=== PATIENT | female | born 1950 | race Caucasian/White ===

== ENCOUNTER 2017-01-18 10:59 | Inpatient (IN) | payer MEDICARE, OTHER ==
[~2017-01-18] VITALS: Ht 165.1 cm; Wt 93.0 kg
[~2017-01-18 10:59] MED LIST: ACAI BERRY500 MG PO; ALDACTAZIDE 251 EACH PO; BENICAR20 MG PO; CALCIUM 600 +1 EAC4 PO; CLONIDINE HCL0.1 MG PO; DILTIAZEM HCL120 MG PO; FISH OIL500 MG; FLEXERIL10 MG PO; GREEN TEA250 MG PO; LAMOTRIGINE100 MG PO; METHIMAZOLE10 MG PO; METOPROLOL TART50 MG PO; NORCO 5-325 TA1 EACH PO; SERTRALINE HCL100 MG PO; SIMVASTATIN40 MG PO; SPIRONOLACTONE25 MG PO; TIZANIDINE HCL4 MG PO; TRAZODONE HCL100 MG PO; VITAMIN D3 EPIDURAL; VITAMIN D32000 UNIT PO
--- NOTE | 2017-02-22 11:32 | NUR ---
PREADMIT PT CARE NOTE THIS IS A 66 YEAR OLD FEMALE THAT IS SCHEDULED FOR A RIGHT TOTAL HIP ON 03/04/[address] TITO SIMMONS. PT STATES SHE LIVES IN A SPLIT LEVEL HOME WITH STAIRS, BUT IF SHE GOES IN THE BACK WAY IT IS ALL ONE LEVEL FOR HER. STATES SHE HAS A WALK IN SHOWER WITH A SHOWER SEAT ALSO A HANDHELD SHOWER HEAD. SHE SAYS SHE ALREADY HAS A WALKER THAT IS FOUR WHEELED. STATES SHE IS PLANNING TO DO OP PT WITH [facility] OP PT. DENIES FURTHER QUESTIONS AT THIS TIME. WILL FOLLOW HER WHEN SHE IS IN THE HOSPITAL.
--- NOTE | 2017-03-04 08:53 | NUR ---
03/04/17 0[facility]: O2 REMOVED.
--- NOTE | 2017-03-04 10:45 | NUR ---
PT DOZING OFF BETWEEN CARES. VSS. RIGHT HIP DRESSING C/D/I. NO DRAINAGE ON MEPILEX VISIBLE. CMS INTACT. CRYOCUFF IN PLACE. FAMILY AT BEDSIDE. DECREASED O2 TO 1L. FAMILY TO BRING IN CPAP MACHINE FROM HOME.
--- NOTE | 2017-03-04 11:45 | NUR ---
POST OP 1130 VITALS DONE. PATIENT USING I/S WELL, COUGHING AFTER USE. O2 SATS ARE 96% ON 1L, ROOM AIR TRIAL STARTED. PATIENT DENIES PAIN AT THIS TIME.
--- NOTE | 2017-03-04 13:00 | NUR ---
NOTIFIED HOSPITALIST AND ANESTHESIOLOGIST OF LOW BPs. NO CONCERN UNLESS SYMPTOMATIC. PT REPORTING NEED TO URINATE. WILL GET PATIENT UP TO COMMODE WITH 2PA.
--- NOTE | 2017-03-04 13:12 | NUR ---
PT RESTING IN BED, AND OTHER FAMILY PRESENT. PT STATED THAT SHE IS PAIN-FREE AT THE MOMENT. EXTENDED A BLESSING, WILL CONTINUE TO FOLLOW
--- NOTE | 2017-03-04 13:34 | NUR ---
PATIENT SITTING UP IN BED READING. FRESH ICE WATER GIVEN. CALL BUTTON IN REACH. IN ROOM. NO OTHER NEEDS AT THIS TIME.
[2017-03-04] MEDS ORDERED: METHIMAZOLE5 MG PO (15:06)
[2017-03-04] MEDS ORDERED: METOPROLOL TART25 MG PO (15:07)
[2017-03-04] MEDS ORDERED: SIMVASTATIN20 MG PO (15:08)
[2017-03-04] MEDS ORDERED: LOSARTAN POTAS100 MG PO (15:08)
[2017-03-04] MEDS ORDERED: DILTIAZEM ER240 MG PO (15:08)
[2017-03-04] MEDS ORDERED: FERROUS SULFAT325 MG PO (15:10)
[2017-03-04] MEDS ORDERED: VITAMIN C500 M4 PO (15:10)
[2017-03-04] MEDS ORDERED: VITAMIN D1000 UNIT PO (15:10)
--- NOTE | 2017-03-04 15:34 | NUR ---
pt had two episodes of emesis. no nausea precipitating event. 800ml total. zofran given. working with physical therapy now.
--- NOTE | 2017-03-04 15:48 | NUR ---
PATIENT WORKING WITH PT.
--- NOTE | 2017-03-04 19:17 | NUR ---
RECEIVED REPORT FROM RN. PATIENT DENIES NEEDS AT THIS TIME.
--- NOTE | 2017-03-04 19:31 | NUR ---
ANSWERED CALL LIGHT PATIENT WASN'T FEELING WELL NURSE NOTIFIED.
--- NOTE | 2017-03-04 20:06 | NUR ---
EVENING MEDICATIONS GIVEN, SHIFT ASSESSMENT DONE. PATIENT REPORTS /10 PAIN IN RIGHT HIP. SCHEDULED PAIN MEDICATION GIVEN. PATIENT AMBULATED TO BATHROOM WITH SBA/FWW, WHICH SHE TOLERATED WELL. TEDs/SCDs/HEEL PROTECTORS/FOAM WEDGE/CRY CUFF IN PLACE. CALL LIGHT WITHIN REACH.
--- NOTE | 2017-03-04 23:02 | NUR ---
ASSISTED THE PATIENT TO THE BATHROOM AND BACK TO BED USING WALKER. PATIENT TOLERATED WELL. CRYO CUFF, CONT. PULSE OX, ABDUCTION DEVICE, HEEL PROTECTOR, SCDS BACK ON. CALL LIGHT WITHIN REACH.
--- NOTE | 2017-03-04 23:03 | NUR ---
PATIENT REPORTS 6/10 PAIN IN RIGHT HIP. PRN PAIN MEDICATION GIVEN PER EMAR. PATIENT DENIES OTHER NEEDS AT THIS TIME. ALL ORDERS IN PLACE, CALL LIGHT WITHIN REACH.
--- NOTE | 2017-03-05 01:09 | NUR ---
PATIENT AMBULATED TO BATHROOM WITH SBA/FWW/NON-SLIP SOCKS, WHICH SHE TOLERATED WELL. REPORTS 2/10 PAIN IN RIGHT HIP. SCHEDULED PAIN MEDICATION GIVEN PER EMAR. SHIFT ASSESSMENT DONE. SHE DENIES FURTHER NEEDS AT THIS TIME. CALL LIGHT WITHIN REACH, ALL ORDERS IN PLACE.
--- NOTE | 2017-03-05 01:28 | NUR ---
ASSISTED PATIENT TO THE BATHROOM THEN BACK TO BED. PATIENT TOLERATED WELL. CALL LIGTH WITHIN REACH.
--- NOTE | 2017-03-05 03:48 | NUR ---
AFTER AMBULATING TO BATHROOM, PATIENT REPORTS 6/10 PAIN IN RIGHT HIP. PRN PAIN MEDICATION GIVEN PER EMAR. DENIES OTHER NEEDS AT THIS TIME. CALL LIGHT WITHIN REACH, ALL ORDERS IN PLACE.
--- NOTE | 2017-03-05 05:48 | NUR ---
PATIENT'S NIGHT WAS UNEVENTFUL. SHE HAS BEEN RESTING COMFORTABLY IN BED THROUGHOUT SHIFT. VSS, PAIN HAS BEEN WELL CONTROLLED WITH SCHEDULED AND PRN PAIN MEDICATION, AND HAS HAD NO COMPLAINTS OF NAUSEA. DRESSING REMAINS C/D/I, CMS INTACT. DRESSING REMAINS C/D/I, PATIENT IS AMBULATING TO BATHROOM WITH 1PA/FWW AND IS TOLERATING WELL. NO ACUTE CHANGES FROM BEGINNING OF SHIFT ASSESSMENT.
--- NOTE | 2017-03-05 06:28 | NUR ---
PATIENT REPORTS 5/10 RIGHT HIP PAIN AFTER AMBULATING TO BATHROOM. PRN PAIN MEDICATION GIVEN PER EMAR. PATIENT DENIES FURTHER NEEDS AT THIS TIME. RESTING COMFORTABLY IN BED, BREATHING IS EVEN AND UNLABORED, O2 SAT IS 97% ON RA, PULSE IS 75. ALL ORDERS IN PLACE, CALL LIGHT WITHIN REACH.
--- NOTE | 2017-03-05 08:19 | OR ---
[facility] [address] [place], [place] [address] Signed DATE OF PROCEDURE: 03/04/17 PREOPERATIVE DIAGNOSIS: Degenerative joint disease, right hip. POSTOPERATIVE DIAGNOSIS: Degenerative joint disease, right hip. PROCEDURE PERFORMED: Right total hip arthroplasty. AMBULETTE DRIVER: Linnette Saleh PA-C. Linnette was present for the entire surgery and was critical for positioning, retraction, and holding the hip in proper alignment. ANESTHESIA: Spinal with sedation. BLOOD LOSS: 150 mL. IMPLANTS: [place] [employer]Fit advanced size 7 stem, 54 mm PSL cup, -2.5 head. BRIEF HISTORY Rocio is a 58-year-old female with progressive worsening of her osteoarthritis. It was nonresponsive to nonoperative treatment. Risks, benefits, and alternatives of operative intervention were discussed with her and she elected to proceed. DESCRIPTION OF PROCEDURE Once consent was obtained, she was taken to the operating room, and after adequate anesthesia, she was placed in a left lateral decubitus position. All downside pressure points were well padded and axillary roll was placed. The leg was then prepped and draped in the standard sterile fashion. The hip was approached through an anterolateral approach. A 5-inch incision was carried through skin and subcutaneous tissue. The IT band was split longitudinally. The vastus lateralis was then split from the tip of the trochanter distally and elevated in a subperiosteal manner. The gluteus medius was split bluntly. Gluteus minimus and capsule were split sharply. The capsule and minimus were then elevated off the femoral neck. The hip was dislocated and the femoral neck cut was made 1 fingerbreadth above the lesser trochanter and the head was removed. Periacetabular soft tissue was removed and the acetabulum was reamed up to a 54, and a 54 cup was placed in 15 degrees of anteversion and 45 degrees of abduction. Excellent fixation in the bone was obtained. The cup liner was then impacted in position. It was found to be quite stable. Attention was turned to proximal femur. The proximal femur was opened using the box osteotome, followed by the Silvio cross. I t was then sequentially reamed up to an 8 and broached up to a 7, which was quite well fitting in type. Standard offset neck and +0 head were placed. The hip was a little bit tight to reduce and there Electronically Signed By: ERNA NGUYEN MD 03/05/17 0819 PATIENT NAME: ROCIO MARRERO OPERATIVE REPORT DATE OF : 46 PHYSICIAN: ERNA NGUYEN MD REPORT #: [id number] REPORT IS CONFIDENTIAL AND NOT TO BE RELEASED WITHOUT AUTHORIZATION [facility] [address] [place], [place] [address] Signed was hamstring tightness. The leg lengths were approximately the same. The hip was then dislocated. The trials were removed. The final stem was impacted until it was well seated. A -2.5 head was impacted again until it was seated firmly. The hip was then reduced. Leg lengths were found to be equal and good range of motion with no hamstring tightness. The wound was copiously irrigated with antibiotic solution throughout the procedure. A total of 3 L of antibiotic irrigation was used. The capsule was closed using #1 Vicryl. The vastus and IT band layers were closed independently using #1 Stratafix. The subcutaneous and fat layers were closed independently using 0 Stratafix and the skin with baron. Wound was dressed with a Mepilex Ag dressing, OpSite, and she was placed in a hip abduction pillow, taken to recovery in satisfactory condition. All sponge, needle and instrument counts were correct. Erna Nguyen MD BA/Hiteshl /[id number] cc: Jaylon Bass MD Electronically Signed By: ERNA NGUYEN MD 03/05/17 0819 PATIENT NAME: ROCIO MARRERO OPERATIVE REPORT DATE OF : 46 PHYSICIAN: ERNA NGUYEN MD REPORT #: [id number] REPORT IS CONFIDENTIAL AND NOT TO BE RELEASED WITHOUT AUTHORIZATION
--- NOTE | 2017-03-05 08:30 | NUR ---
PATIENT UP TO BATHROOM, STANDBY ASSSIST THEN TO CHAIR. PATIENT TOLERATES WELL, USES WALKER WITH GOOD TECHNIQUE. PATIENT IN CHAIR WORKING WITH PT.
--- NOTE | 2017-03-05 10:00 | NUR ---
PATIENT SLEEPING IN CHAIR. IN ROOM, CALL LIGHT IN REACH.
--- NOTE | 2017-03-05 12:42 | NUR ---
PATIENT SITTING UP IN BED EATING LUNCH. PATIENT RATES PAIN 4/10 TO RIGHT HIP. THIS RN ASSISTS PATIENT UP TO BATHROOM. PATIENT TOLERATES WELL,THEN BACK TO BED.
--- NOTE | 2017-03-05 14:05 | NUR ---
PT LAYING IN BED. ASKED HOW SHE WAS TODAY-SHE SAID SHE IS IN SOME PAIN. ALSO SAID SHE DIDN'T GET MUCH SLEEP LAST NIGHT, TOO MANY INTERRUPTIONS IN HER TERMS "CHECKING" ON HER. WILL PASS ALONG, DECIDED SHE NEEDED TO REST. WILL FOLLOW NEEDED
--- NOTE | 2017-03-05 14:09 | NUR ---
PATIENT UP TO BATHROOM, C/O PAIN 11/26 TO RIGHT HIP. PATIENT TO CHAIR, REQUESTS PRN MED. DR SIMMONS CALLED, LEFT MESSAGE AT OFFICE. PATIENT UP IN CHAIR WITH WARM BLANKET.
--- NOTE | 2017-03-05 14:30 | NUR ---
CALLED A SECOND TIME, NEW ORDER RECIEVED. CALLED PHARMACY TO GET MED STAT.
--- NOTE | 2017-03-05 15:25 | NUR ---
Patient now rates pain 6/10 to right hip. Patient has been up to bathroom frequently and still feels quite uncomfortable. MD is aware, pain medications have been changed.
[2017-03-05] MEDS ORDERED: SIMVASTATIN40 MG PO (16:11)
[2017-03-05] MEDS ORDERED: SPIRONOLACTONE1 EACH PO (16:12)
[2017-03-05] MEDS ORDERED: VENTOLIN HFA18 GM (16:26)
[2017-03-05] MEDS ORDERED: LAMICTAL100 MG PO (16:26)
--- NOTE | 2017-03-05 16:28 | NUR ---
Medications reconciled using pharmacy records and patient interview & list
--- NOTE | 2017-03-05 18:43 | NUR ---
Patient has had a difficult day today with poor pain control. Dr Nguyen called three different times for pain control issues. Patient is resting comfortably at this time, pain medication dosages and frequencys have been changed to improve pain control. Patient up ambulating with standby assist.
--- NOTE | 2017-03-05 19:11 | NUR ---
Got a bed bath today. Also put a hip wedge to prevent patient crossing her legs. Refilled cryo at 0754 and 1550.
--- NOTE | 2017-03-05 19:15 | NUR ---
SHIFT REPORT RECIEVED. PATIENT RESTING IN BED WATCHING TV. FAMILY IN ROOM. CALL LIGHT IN REACH.
--- NOTE | 2017-03-05 20:37 | NUR ---
EVENING MEDS GIVEN PER ORDER. PATIENT ASSESSMENT COMPLETED. PATIENT REPORTED PAIN AT 5/10, PRN PAIN MEDS GIVEN. CRYO REFILLED WITH ICE. IVF INFUSING, SITE WNL. LUNGS CLEAR. PATIENT REPORTS EATING ABOUT HALF OF HER DINNER WITHOUT NAUSEA. PATIENT UP TO BSC W/1PA AND FWW. OPSITE AND MEPILEX ON RIGHT HIP ARE C/D/I. PATIENT ASSISTED BACK TO BED. SCDS, HEEL PROTECTORS, CARRIE HOSE AND ABDUCTOR IN PLACE. IS AT BEDSIDE, PATIENT DEMONSTRATED APPROPRIATE USE. CRYO IN PLACE. CALL LIGHT IN REACH.
--- NOTE | 2017-03-05 22:11 | NUR ---
patient reports pain at 2.5/10. scheduled pain meds given. patient up to BSC. 1pa w/fww. patient assisted back to bed. cpap in place. cryo cuff, scds, heel protectors, and abductor in place. call light in reach.
--- NOTE | 2017-03-05 23:49 | NUR ---
PATIENT REQUESTED ASSISTANCE TO BSC. 1PA W/FWW. TOLERATED WELL. ASSISTED BACK TO BED. REPORTED PAIN AT 2.5/10. CPAP IN PLACE. CRYO, CARRIE HOSE, HEEL PROTECTORS, SCDS, AND ABDUCTOR IN PLACE. CALL LIGHT IN REACH.
--- NOTE | 2017-03-06 01:15 | NUR ---
PATIENT ASSISTED UP TO BSC 1PA W/FWW. PATIENT REPORTED PAIN AT 5/10. PRN PAIN MEDS GIVEN. PATIENT BACK TO BED. CRYO IN PLACE. CARRIE HOSE, SCDS, HEEL PROTECTORS AND ABDUCTOR IN PLACE. CALL LIGHT IN REACH. AT BEDSIDE.
--- NOTE | 2017-03-06 02:20 | NUR ---
PATIENT UP TO BSC, 1PA W/FWW. TOLERATED WELL. REPORTED PAIN AT 5/10, SCHEDULED PAIN MEDS GIVEN. CRYO REFILLED WITH ICE AND IN PLACE. PATIENT BACK IN BED. TEDHOSE, SCDS, HEEL PROTECTORS, AND ABDUCTOR IN PLACE. ICE WATER PROVIDED. PATIENT RESTING IN BED, CPAP IN PLACE. CALL LIGHT IN REACH.
--- NOTE | 2017-03-06 04:15 | NUR ---
PATIENT UP TO BSC 1PA W/FWW. TOLERATED WELL. ASSISTED BACK TO BED. RATED PAIN AT 4/10, PRN PAIN MEDS GIVEN. CRYO IN PLACE WITH SUFFICIENT ICE. HEEL PROTECTORS, CARRIE HOSE, SCDS AND ABDUCTOR IN PLACE. CALL LIGHT IN REACH. DENIES FURTHER NEEDS.
--- NOTE | 2017-03-06 05:12 | NUR ---
PATIENT WAS UP FREQUENTLY TO USE THE BATHROOM. PAIN WELL CONTROLLED WITH SCHEDULED PAIN MEDS AND PRN PAIN MEDS X3. CARRIE HOSE, HEEL PROTECTORS, SCDS, AND ABDUCTOR IN USE. CRYO IN USE ON RIGHT HIP. DRESSING IS C/D/I. CPAP AT NIGHT. IN ROOM. NO NAUSEA REPORTED, TOLERATING REGULAR DIET.
--- NOTE | 2017-03-06 06:25 | NUR ---
PATIENT RESTING IN BED. SCHEDULED PAIN MEDS GIVEN. PAIN RATED 4/10. CRYO IN PLACE. NO FURTHER NEEDS. CALL LIGHT IN REACH.
--- NOTE | 2017-03-06 07:30 | NUR ---
REPORT RECEIVED FROM MATILDA, PATIENT STANDBY ASSIST UP TO THE COMMODE AND VOIDED 250MLS OF CLEAR YELLOW URINE. PATIENT TOLERATED TX WELL AND WAS STEADY ON HER FEET. PATIENT TO HER CHAIR AND IV SALINE LOCKED. DRESSING TO THE RIGHT HIP CDI WITH MEPILEX AND OPSITE. CMS INTACT TO THE RIGHT LEG.
--- NOTE | 2017-03-06 07:58 | NUR ---
PATIENT SITTING UP IN THE CHAIR EATING HER BREAKFAST. PAIN IN THE RIGHT HIP IS 4/10, PATIENT REQUESTING PAIN MEDICATION AT THIS TIME. PATIENT GIVEN 4MG OF ORAL DILAUDID AT THIS TIME.
--- NOTE | 2017-03-06 08:30 | NUR ---
PATIENT REQUESTING ANOTHER PAIN PILL PAIN IS NOW 5/10 AFTER GETTING UP IN THE ROOM AND BED BATH DONE WITH RADIOGRAPHER TECHNOLOGIST. 2MG OF DILAUDID GIVEN PO.
--- NOTE | 2017-03-06 09:15 | NUR ---
PATIENT UP TO COMMODE AT THIS TIME. PATIENT REQUESTING TO LAY DOWN AFTER USING THE COMMODE. CRYO CUFF WAS REFILLED WITH FRESH ICE. BEDBATH GIVEN BY THIS AXLE AND FRAME MECHANIC AND AM CARE DONE BY PATIENT. PATIENT REQUESTING MORE PAIN MEDICATION-DEEJAY LASSITER WAS NOTIFIED.
--- NOTE | 2017-03-06 10:21 | NUR ---
PATIENT RESTING IN BED AT THIS TIME. VITALS TAKEN. CRYO CUFF IS IN PLACE AND CALL LIGHT IS WITHIN REACH. NO OTHER COMPLAINTS OR REQUESTS AT THIS TIME.
--- NOTE | 2017-03-06 10:21 | NUR ---
WENT TO PATIENTS ROOM TO GIVE THE PATIENT HER SCHEDULED OXYCODONE, HER HAD JUST TAKEN HER TO THE BATHROOM TO VOID WITHOUT CALLING STAFF TO HELP WITH AMBULATION, ASKED PATIENT AND THE TO PLEASE NOT DO THAT AGAIN AND TO MAKE SURE STAFF IS PRESENT WHEN THE PATIENT AMBULATES. PAIN AT THIS TIME IS AT A 5/10. SCD'S, HEEL PROTECTORS AND CRYO CUFF PLACED ON THE PATIENT AT THIS TIME. PATIENT IS ON THE PHONE WITH A FRIEND. APPEARS TO BE IN NO PAIN OR DISCOMFORT.
--- NOTE | 2017-03-06 11:09 | NUR ---
PATIENT ASSISTED UP TO THE BATHROOM TO VOID, PATIENT VOIDED 300MLS OF YELLOW CLEAR URINE, PATIENT WAS STEADY ON HER FEET WITH HER FWW JUST NEEDED ASSISTANCE WITH HER RIGHT LEG INTO THE BED. CRYO CUFF, SCD'S AND HEEL PROTECTORS BACK ON HER AT THIS TIME. PATIENT'S PAIN CURRENTLY 3/10. PATIENT READY TO WORK WITH PHYSICAL THERAPY.
--- NOTE | 2017-03-06 11:53 | NUR ---
PATIENT MOVED UP IN BED AND LUNCH SET UP FOR HER AT THIS TIME.
--- NOTE | 2017-03-06 13:10 | NUR ---
PATIENT RESTING IN BED AND VISITING WITH HER FAMILY. NO REQUESTS AT TIME.
--- NOTE | 2017-03-06 13:41 | NUR ---
PT SLEEPING VERY SOUNDLY. DID NOT WANT TO BOTHER HER. FAMILY WAS IN THE RM, WAVED TO THEM THEY WAVED BACK. WILL CONTINUE TO FOLLOW
--- NOTE | 2017-03-06 14:13 | NUR ---
PATIENT ASSISTED UP TO THE BATHROOM TO VOID, PATIENT VOIDED YELLOW URINE 300MLS. PATIENT IS A STANDBY ASSIST AND STATES PAIN IS AT A 5/10 WITH AMBULATION. PATIENT GIVEN SCHEDULED OXYCODONE PO.
--- NOTE | 2017-03-06 15:13 | NUR ---
PATIENTS VITALS AND I&O'S DONE AND CHARTED AT THIS TIME. PATIENT IS RESTING IN BED WITH HER PERSONAL CPAP ON AND HER EYES CLOSED. PATIENT HAS VISITORS IN ROOM AT HER BEDSIDE. PATIENT'S CRYO CUFF REFILLED WITH FRESH ICE AT THIS TIME ALSO.
--- NOTE | 2017-03-06 15:52 | NUR ---
patient standby assist up to the bathroom to void, assisted her with her right leg, patient's pain is tolerable at this time and she denies the need for more pain medication. family present in the room at this time.
--- NOTE | 2017-03-06 16:40 | NUR ---
patient has been up ambulating with physical therapy, patient requesting pain medication and rates pain in the right hip 4.5. patient given 6mg of po dilaudid at this time.
--- NOTE | 2017-03-06 18:29 | NUR ---
PATIENT HAS WORKED WITH PHYSICAL THERAPY TWICE TODAY AND IS READY TO D/C HOME TOMMORROW. SHE HAS A MEPILEX DRESSING TO THE RIGHT HIP WITH AN OPSITE OVER THE MEPILEX THAT HAS REMAINED CDI. PATIENT HAS BEEN A STANDBY ASSIST UP TO THE BATHROOM ONLY NEEDING ASSISTANCE WITH MOVING THE RIGHT LEG IN BED. SHE HAS BEEN ABLE TO USE THE BATHROOM WITH MINIMAL ASSISTANCE AND PAIN HAS RANGED TODAY FROM 2 TO 5 WHICH IS TOLERABLE FOR HER. SHE REMAINS ON RA.
--- NOTE | 2017-03-06 18:55 | NUR ---
TEMPERATURE RECHECKED AT THIS TIME, 98.4 TEMPORAL
--- NOTE | 2017-03-06 20:00 | NUR ---
RECEIVED REPORT AT 1900. FOUND PT IN BED SLEEPING WITH FAMILY AT BEDSIDE. PT DID WAKE UP TO VOICE BUT FELL RIGHT BACK ASLEEP.
--- NOTE | 2017-03-06 22:00 | NUR ---
V/S ARE WDL, PAIN IS WELL CONTROLLED, SCHEDULED 7.5MG PO OXY WAS HELD DUE TO PT BEING DROWSY AND NOT HAVING ANY PAIN. RR AND O2 SATS WERE WDL BUT PT SINCE START OF THIS SHIFT HAS NOT BEEN ABLE TO STAY AWAKE FOR ANY LENGTH OF TIME. SHE KEEPS FALLING ASLEEP WHEN I AM TALKING TO HER. SURGICAL SITE ON RIGHT HIP IS C/D/I, PT IS MOVING WELL, DORSALIS PEDIS ON RIGHT FOOT IS +2, VERY MILD EDEMA NOTED ON RIGHT ANKLE. +2 EDEMA ON RIGHT HIP. NO OTHER ISSUES NOTED.
--- NOTE | 2017-03-07 | NUR ---
PT IS SLEEPING
--- NOTE | 2017-03-07 02:00 | NUR ---
PT IS SLEEPING.
--- NOTE | 2017-03-07 04:15 | NUR ---
PT DID RECEIVED 4MG OF PO DILAUDED. PT WALKED TO THE BATHROOM AND HER PAIN INCREASED FROM A 0 TO A 5. PT IS BACK IN BED
--- NOTE | 2017-03-07 05:28 | NUR ---
AT START OF SHIFT PT WAS VERY DROWSY FROM SCHEDULED OXYCODONE. 2200 DOSE WAS NOT GIVEN DUE TO CONTINUED DROWSINESS. PT REFUSED THE 0200 SCHEDULED DOSE DUE TO NOT HAVING ANY PAIN AT ALL. AROUND 0400 HOWEVER, PT BECAME PAINFUL AND 4MG OF PO DILAUDED WAS GIVEN. PAIN WENT FROM A 5 TO A 4. AT 0505 THE SCHEDULED OXYCODON 7.5MG WAS GIVEN. V/S ARE WDL SO FAR THIS SHIFT. DRESSING ON RIGHT HIP IS C/D/I, DORSALIS PEDIS IS +2, EDEMA ON RIGHT HIP IS +2, EDEMA ON RIGHT FOOT IS +1, OVERALL PT IS MOVING WELL WITH HER WALKER. I&O ARE ADEQUATE, NO NEW ISSUES HAVE BEEN NOTED FOR THIS PT. PT SLEPT MOST OF THIS SHIFT. I WILL CONTINUE TO MONITOR HER PAIN.
--- NOTE | 2017-03-07 07:10 | NUR ---
BEDSIDE REPORT RECEIVED FROM MAIKOL OROPEZA. PT SLEEPING, BIPAP ON.
--- NOTE | 2017-03-07 07:10 | NUR ---
BEDSIDE HANDOFF REPORT RECEIVED FROM WARP CHANGER RN. PT SLEEPING, LEFT UNDISTURBED.
[2017-03-07] MEDS ORDERED: XARELTO10 MG PO (07:29)
[2017-03-07] MEDS ORDERED: HYDROMORPHONE HC2 MG PO (07:29)
[2017-03-07] MEDS ORDERED: OXYCODONE HCL5 MG PO (07:29)
[2017-03-07] MEDS ORDERED: MIRALAX17 GM PO (07:30)
--- NOTE | 2017-03-07 08:19 | NUR ---
PT OUT OF ROOM WITH PHYSICAL THERAPY.
--- NOTE | 2017-03-07 09:39 | NUR ---
PT IS SITTING UP IN CHAIR WITH CALL LIGHT IN REACH. PT DID NOT NEED ANYTHING ELSE AT THE MOMENT
--- NOTE | 2017-03-07 09:47 | NUR ---
PT ASSESSMENT COMPLETE. PT COMPLAINING OF 4.5/10 PAIN IN RIGHT HIP AND IN KNEE AFTER WORKING WITH PHYSICAL THERAPY. ADMINISTERED SCHEDULED PO OXYCODONE. PT DENIES NAUSEA, IS READY FOR DISCHARGE TO HOME. LEGS ELEVATED. CALL LIGHT WITH PT.
--- NOTE | 2017-03-07 10:40 | NUR ---
PHONE CALL RECEIVED FROM DR. SIMMONS. TELEPHONE ORDER TO CHANGE DRESSING SITE, ORDER FOR PT TO REMOVE DRESSING IN THREE DAYS.
[2017-03-07] MEDS ORDERED: METOPROLOL TART25 MG PO (10:51)
--- NOTE | 2017-03-07 11:14 | NUR ---
PT DRESSING CHANGED. INCISION SITE DRY, JACKY INTACT, NO SEPARATION NOTED ALONG INCISION, NO REDNESS. SOME BRUISING NOTED AROUND SITE. PT IV REMOVED, CATHETER INTACT. DISCHARGE INSTRUCTIONS PROVIDED TO FAMILY AND PT BY PHARMACY AND RN, VERBALLY AND WRITTEN. PT SENT HOME WITH ALL BELONGINGS, CRYOCUFF, HIP ABDUCTOR, WEARING CARRIE HOSE AND GIVEN ANOTHER PAIR.
--- NOTE | 2017-03-08 10:56 | NUR ---
FAXED CHART NOTES TO [facility] TO INCLUDE FACESHEET, H AND P, CONSULT, OP NOTES, LABS, AND PT AND OT EVAL AND NOTES.
--- NOTE | 2017-03-10 06:50 | DS ---
[facility] [address] [place] [address] Signed DATE OF DISCHARGE: 03/07/17 ADMISSION DIAGNOSIS: Degenerative joint disease, right hip. DISCHARGE DIAGNOSIS: Degenerative joint disease, right hip. PROCEDURE PERFORMED: Right total hip arthroplasty. BRIEF HISTORY Bridgette is a 66-year-old female with progressive worsening of her osteoarthritis nonresponsive to conservative means. Risks, benefits and alternatives were discussed with her and she elected to proceed. Once consent was obtained, she was taken to the operating room. After adequate anesthesia, she underwent the above-named procedure. She tolerated this well, was taken to the recovery room and subsequently to the orthopedic floor. She was placed on oral pain medications of Oxycodone and Rougon, however, this was inadequate to control her pain after the block wore off. The Oxycodone was increased to 7.5 q.4 and the Rougon was changed to Dilaudid 2-4 mg every 4 hours p.r.n. She tolerated this well. She was seen by Physical Therapy, able to ambulate up and down the hallway and up and down stairs by the day of discharge. She had a good safety profile. She was kept on DVT prophylaxis of SCDs, TEDs and Xarelto 10 mg p.o. q. day. She will continue this for another 10 days. She will follow up with me in 7-10 days. She will notify me of any problems in the interim. Erna Nguyen MD BA/Jonny /[id number] cc: Jaylon Bass MD Electronically Signed By: ERNA NGUYEN MD 03/10/17 0650 PATIENT NAME: ELIDAFILOMENA DISCHARGE SUMMARY DATE OF : 46 PHYSICIAN: ERNA NGUYEN MD REPORT #: [id number] REPORT IS CONFIDENTIAL AND NOT TO BE RELEASED WITHOUT AUTHORIZATION
== END 2017-03-07 11:11 | disposition home or self-care (01) | DRG 470 ==
LOC: MS 02-04 06:45 → DSVR 03-04 05:35 → MS 03-04 06:45
PROVIDERS: ADMIT Specialist
PROC: 0SR90JZ Replacement of Right Hip Joint with Synthetic Substitute, Open Approach (ICD-10-PCS; principal; 2017-03-04 06:45)
DX: M16.11 Unilateral primary osteoarthritis, right hip (principal); E03.9 Hypothyroidism, unspecified; F31.9 Bipolar disorder, unspecified; E78.5 Hyperlipidemia, unspecified; I12.9 Hypertensive chronic kidney disease with stage 1 through stage 4 chronic kidney disease, or unspecified chronic kidney disease; N18.9 Chronic kidney disease, unspecified
CPT/HCPCS: 01402; 36415; 72170; 80048; 85025; 94762; 97110; 97116; 97161; 97165; 97530; C1776; J0690; J1170; J1885; J2250; J2274; J2405; J2550; J2704; J3010; J7120

== ENCOUNTER 2017-09-18 22:58 | Emergency (ER) | payer MEDICARE, OTHER ==
[~2017-09-18] VITALS: Ht 165.1 cm; Wt 97.1 kg
--- OUTSIDE RECORDS SUMMARY | ~2017-09-18 | XMS | Encounter Summary ---
Demographics + + + | Address | [address] | | | [place] [address] | + + + | Home Phone | | + + + | Preferred Language | Unknown | + + + | Marital Status | | + + + | Congregational Affiliation | 1041 | + + + | Race | Unknown | + + + | Ethnic Group | Unknown | + + + Author + + + | Author | [facility] [employer] [facility] | + + + | Organization | [facility] [facility] | + + + | Address | Unknown | + + + | Phone | Unavailable | + + + Support + + + + + | Name | Relationship | Address | Phone | + + + + + | Tod Mahoney | ECON | [address] | | | | | [place], | | | | | [place] [address] | | + + + + + | Duke Mahoney | JANENE | Unknown | | + + + + + Care Team Providers + +------+ + | Care Sports Equipment Supervisor Name | Role | Phone | + +------+ + | Jaylon Bass MD | PCP | | + +------+ + Encounter Details +--------+---------+ + + + | Date | Type | Department | Care Team | Description | +--------+---------+ + + + | 08/19/ | Office | [facility] | Neftali Cevallos, | CKD (chronic kidney | | 2018 | Visit | [place] [address] | [place] | disease), stage III | | | | [address] | [address] | (Primary Dx); | | | | [address] [place], [place] | [place] [address] | Essential | | | | [address] | [phone] | hypertension, | | | | | | benign; | | | | | | Hyperuricemia; | | | | | | Microalbuminuria | +--------+---------+ + + + Social History + +-------+ +--------+------+ | Tobacco Use | Types | Packs/Day | Years | Date | | | | | Used | | + +-------+ +--------+------+ | Never Smoker | | | | | + +-------+ +--------+------+ + +---+---+---+ | Smokeless Tobacco: | | | | | Never Used | | | | + +---+---+---+ + + +---------+ + | Alcohol Use | Drinks/We | oz/Week | Comments | | | ek | | | + + +---------+ + | No | | | | + + +---------+ + + + + | Sex Assigned at | Date Recorded | | | | + + + | Not on file | | + + + as of this encounter Last Filed Vital Signs + + + + | Vital Sign | Reading | Time Taken | + + + + | Blood Pressure | 110/50 | 08/19/2017 10:18 AM PDT | + + + + | Pulse | 58 | 08/19/2017 10:18 AM PDT | + + + + | Temperature | 35.7 C (96.3 F) | 08/19/2017 10:18 AM PDT | + + + + | Respiratory Rate | - | - | + + + + | Oxygen Saturation | 98% | 08/19/2017 10:18 AM PDT | + + + + | Inhaled Oxygen | - | - | | Concentration | | | + + + + | Weight | 95.8 kg (211 lb 3.2 | 08/19/2017 10:18 AM PDT | | | oz) | | + + + + | Height | 165.1 cm (5' 5") | 08/19/2017 10:18 AM PDT | + + + + | Body Mass Index | 35.15 | 08/19/2017 10:18 AM PDT | + + + + in this encounter Instructions Patient Instructions - Neftali Cevallos ARNP - 08/19/2017 10:20 AM PDT Medication Changes made at today's visit: None Next LAB WORK should be done in about: 6 Months You do NOT need to fast for this lab work, keep hydrated. Next APPOINTMENT: in about 6 Months Other Instructions: Low Salt Diet Recommended Please have lab work done 1 weeks prior to your appointment. Make sure you are well hydrated prior to going to the lab and are able to give a urine s ample. Call the office with any questions or concerns. If you are taking a proton pump inhibitor, such as Protonix (omeprazole), talk to your [facility] care provider about if you need this medication rodent exterminator. Call our office or your PCP if you have blood pressure over 150/90 on more than one occa danial, or have blood pressure concerns. If you experience diarrhea and /or vomiting for more than 24 hours with no relief please seek medical help. The treatments that are recommended to slow the progression of Chronic Kidney Disease in clude blood sugar control, blood pressure control, healthy body weight (BMI >= 30 kg/m2), av oid sedentary lifestyle, avoid smoking/ tobacco, glycemic control, avoid NSAIDs, early inter vention of worsening nausea, vomiting, or diarrhea and avoid IV contrast. I urge that you measure your BP at least daily, twice daily if you are able, record it a nd bring record to every appointment with every healthcare provider you see. Do not drink alcohol, caffeinated beverages, such as soda pop, coffee, espresso drinks, energy drinks. Please bring a list of your medications in the pharmacy bottles to every visit so a medi cation review can be done. Make all healthcare providers aware of the presence of kidney disease and request to adj ust all medications according to level of kidney function and to avoid nephrotoxic medicatio ns if possible, including but not limited to antibiotics. DO NOT TAKE any anti-inflammatory drugs such Ibuprofen, Diclofenac, Motrin, Advil, Aviles xicam, naprosyn (Aleve), Celebrex, decongestants containing pseudoephedrine (such as some fo azael of Sudafed or Actifed) or herbal supplements (because of lack of FDA approval) Short term use of acetaminophen (Tylenol) for fever or pain is okay. If in doubt please call our office for verification. Avoid exposure to IV contrast agents (DYE) used in CT scans, MRI's, Fluoroscopy, or in h eart catheterization procedures unless necessary or for a life saving procedure. It is recommend that you get regular aerobic exercise, this would be 3 x a week, eat a l ow fat/low salt diet, and see your primary care provider (PCP) for health maintinance and pe riodic exams at least annually. If you smoke, you must quit. Smoking worsens kidney disease. in this encounter Progress Notes Neftali Cevallos ARNP - 08/19/2017 10:20 AM PDTFormatting of this note may be different f rom the original. Patient Active Problem List Diagnosis Hyperthyroidism Graves disease Essential hypertension, benign CKD (chronic kidney disease), stage III Dyslipidemia Primary osteoarthritis involving multiple joints Non morbid obesity due to excess calories Hyperuricemia Microalbuminuria Spondylosis of cervical region without myelopathy or radiculopathy Dear Dr Bass: I saw your patient Ms. Mahoney in the office today with her . As you are familiar w ith her case, I will not state her past history in detail. Briefly, she is a 66 y.o. female patient with past history as delineated above. she is here to F/U on her CKD & its associa odalis complications. In 11/2015, sCr & eGFR were 1.36 & 39. The patient has history of hypertension since ~2004. her BP control has been reportedly bob quate lately. she denies any history of prolonged exposure to NSAIDs or recent exposure to k nown nephrotoxins. she denies any recurrent nephrolithiasis or pyelonephritis. she tells me that she's had no history of urinary retention, gross hematuria or dysuria. she has stress i ncontinence symptoms. No symptoms of UTI. she has 0-1 nightly nocturia. No history of pass ing kidney stones. she has no foamy urine either. her baseline Creatinine is TBD. There is n o family history of renal genetic diseases such as PKD. she says that she feels 'good ' today. she denies any blurred vision tinnitus, headache, f ever, chills, or cough. No nausea, vomiting, abdominal pain, diarrhea, melena, or hematoche elsa. No chest pain, palpitation, loss of consciousness, orthopnea, paroxysmal nocturnal dys pnea, or leg edema. The following portions of the patient's history were reviewed and updated as appropriate: a llergies, current medications, past medical history, past social history, past surgical hist ory, family history and problem list. * U/S from 01/2016: no evidence of any significant renal anatomic abnormalities. As in History of Present Illness & in Assessment. All the pertinent systems were reviewed a nd were otherwise negative. Current Outpatient Prescriptions Medication Sig Dispense Refill ascorbic acid (VITAMIN C) 500 MG tablet Take 500 mg by mouth daily. cholecalciferol (VITAMIN D-3) 1000 units tablet Take 1,000 Units by mouth daily. diltiazem (CARDIZEM SR) 60 MG 12 hr capsule Take 60 mg by mouth 2 (two) times daily. lamoTRIgine (LAMICTAL) 100 MG tablet Take 100 mg by mouth daily. losartan (COZAAR) 100 MG tablet Take 100 mg by mouth daily. metoprolol (LOPRESSOR) 50 MG tablet Take 0.5 tablets by mouth 2 (two) times daily. sertraline (ZOLOFT) 100 MG tablet Take 100 mg by mouth daily. simvastatin (ZOCOR) 40 MG tablet Take 40 mg by mouth nightly. spironolactone (ALDACTONE) 25 MG tablet Take 25 mg by mouth daily. tizanidine (ZANAFLEX) 4 MG capsule Take 4 mg by mouth 3 (three) times daily. traZODone (DESYREL) 100 MG tablet Take 150 mg by mouth nightly. methimazole (TAPAZOLE) 5 MG tablet Take 0.5 tablets by mouth daily. (Patient not taking : Reported on 06/06/2017) 30 tablet 3 No current facility-administered medications for this visit. Physical Exam: BP 110/50 (BP Location: Left upper arm, Patient Position: Sitting) | Pulse 58 | Temp 96.3 F (35.7 C) (Temporal) | Ht 1.651 m (5' 5") | Wt 95.8 kg (211 lb 3.2 oz) | SpO2 98% | BMI 35.15 kg/m General appearance: Pleasant, not in acute distress. Neck: Supple without tracheal deviation or jugular venous distension. Head and ENT: Head is atraumatic. The oropharynx is without erythema or thrush. Eyes: Anicteric. The extraocular muscle movements are normal. Lungs: Clear to auscultation bilaterally. There are no wheezes. Heart: Regular rate and rhythm without any rub, gallop. 2/6 systolic murmur best at the LS B. Abdominal exam: Soft and nontender with normal bowel sounds. Musculoskeletal: No costovertebral angle tenderness bilaterally. Extremities: Warm to touch with no leg edema. There is no cyanosis. Skin: There are no rashes, petechiae, or ecchymosis. Neurological: Awake, alert, and oriented to time, place, and person. Normal gross motor po wer. There is no asterixis. Psychiatric: The patient s behavior is normal. Judgment and thought content are normal. Lab Results Component Value Date BUN 18 08/13/2017 CREATININE 1.43 (A) 08/13/2017 EGFR 36 08/13/2017 NA 141 08/13/2017 K 4.3 08/13/2017 CL 105 08/13/2017 CO2 25 08/13/2017 CA 9.6 08/13/2017 CA 9.6 08/13/2017 MG 2.1 04/19/2017 ALB 4.0 08/13/2017 HGB 12.7 08/13/2017 URICACID 5.7 08/13/2017 WBC 6.5 08/13/2017 HCT 38.3 08/13/2017 LABPROT 67.7 08/13/2017 Assessment: Ms. Mahoney is a 66 y.o. female patient with stage III-IV CKD on a background of longstandin g hypertension. 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 RENAL FUNCTION: Relatively stable stage III-IV CKD BLOOD PRESSURE: Reports controllled, no log today BLOOD SUGAR: Reports it normal ELECTROLYTES: Normal ANEMIA: None VITAMIN D: To be checked thru office PARATHYROID HORMONE: Okay URIC ACID: Better PROTEINURIA: Minimal URINALYSIS: No UTI or hematuria VOLUME STATUS: Euvolumic Discussions/Recommendations: I discussed today with Ms. Mahoney the meaning of her CKD and the interaction of that wit h her hypertension. I stressed the importance of keeping her BP controlled and avoiding getting dehydrated i f we are to have a chance at helping preserve her renal function. She showed good understan ding. I gave her instructions on how to chart her blood pressure in the appropriate manner at home. She is to call us if they fall outside of the optimal provided range. She will bring her sphygmomanometer for validation once a year. She will strictly abide by a low salt & low potassium & low purine diet and will avoid all kinds of NSAIDs for analgesia. PLAN: No medication changes today. BP Charting: she will bring me back her home BP charts in 2 weeks. At that time, I will decide whether any changes to her vasoactive regimen are warranted. Follow up labs include: RFP, Magnesium, CBC, intact PTH, uric acid, Urine total protein- to-creatinine ratio and other labs as indicated. Patient has expressed understanding of today's instructions, all questions have been ans wered to their satisfaction and written instructions have been provided. She will continue to F/U with your office regularly. She will have labs done before she comes back in [address] Bass for the opportunity to follow up with this patient and be part of the ga re team. Please do not hesitate to call me at any time with questions or concerns. Truly yours, Neftali Cevallos [facility] This note prepared with voice recognition software, if any questions concerning spelling an d/or grammar, please call. in this encounter Plan of Treatment Not on fileas of this encounter Visit Diagnoses + + | Diagnosis | + + | CKD (chronic kidney disease), stage III - Primary | + + | Essential hypertension, benign | + + | Hyperuricemia | + + | Other abnormal blood chemistry | + + | Microalbuminuria | + + | Proteinuria | + +
--- OUTSIDE RECORDS SUMMARY | ~2017-09-18 | XMS | Encounter Summary ---
Demographics + + + | Address | [address] | | | [place] [address] | + + + | Home Phone | | + + + | Preferred Language | Unknown | + + + | Marital Status | | + + + | Restoration Affiliation | 1041 | + + + | Race | Unknown | + + + | Ethnic Group | Unknown | + + + Author + + + | Author | [facility] [employer] [facility] | + + + | Organization | [facility] [facility] | + + + | Address | Unknown | + + + | Phone | Unavailable | + + + Support + + + + + | Name | Relationship | Address | Phone | + + + + + | Tod Mahoney | ECON | [address] | | | | | [place], | | | | | [place] [address] | | + + + + + | Duke Mahoney | ECON | Unknown | | + + + + + Care Team Providers + +------+ + | Care Tooling Manager Name | Role | Phone | + +------+ + | Jaylon Bass MD | PCP | | + +------+ + Reason for Visit +--------+ + | Reason | Comments | +--------+ + | Other | Appointment and Lab reminder | +--------+ + Encounter Details +--------+ + + + + | Date | Type | Department | Care Team | Description | +--------+ + + + + | 08/13/ | Telephone | [facility] | Josephine Black CMA | Other (Appointment | | 2017 | | [address] | | and Lab reminder) | | | | [address] | | | | | | [place] [address] | | | | | | [phone] | | | +--------+ + + + + Social History + +-------+ [...] + + + as of this encounter Plan of Treatment Not on fileas of this encounter Visit Diagnoses Not on filein this encounter"
--- OUTSIDE RECORDS SUMMARY | ~2017-09-18 | XMS | Encounter Summary ---
Demographics + + + | Address | [address] | | | [place] [address] | + + + | Home Phone | | + + + | Preferred Language | Unknown | + + + | Marital Status | | + + + | Latter Day Affiliation | 1041 | + + + | Race | Unknown | + + + | Ethnic Group | Unknown | + + + Author + + + | Author | [facility] [employer] [facility] | + + + | Organization | [facility] [employer] [facility] | + + + | Address | Unknown | + + + | Phone | Unavailable | + + + Support + + + + + | Name | Relationship | Address | Phone | + + + + + | Tod Mahoney | ECON | [address] | | | | | [place], | | | | | [place] [address] | | + + + + + | Duke Mahoney | ECON | Unknown | | + + + + + Care Team Providers + +------+ + | Care Librarian Specialist Name | Role | Phone | + +------+ + | Jaylon Bass MD | PCP | | + +------+ + Reason for Visit + + + | Reason | Comments | + + + | Labs Only | Myriam - 08/13/17 - brien | + + + Encounter Details +--------+ + + + + | Date | Type | Department | Care Team | Description | +--------+ + + + + | 08/15/ | Documentati | [facility] | Tanvir, | Labs Only ([facility] | | 2018 | on Only | [address] | - 08/13/17 - | | | | [address] | | [place] | | | | [place] [address] | | | | | | [phone] | | | +--------+ + + + [...] Treatment Not on fileas of this encounter Results Uric acid (08/13/2017) + +-------+ + | Component | Value | Ref Range | + +-------+ + | URIC ACID | 5.7 | 2.3 - 6.6 | + +-------+ + + + + | Specimen | Performing Laboratory | + + + | Blood | [facility] [address] [place] [address] | | | [id number] | + + + Protein / creatinine ratio, urine (08/13/2017) + +-------+ + | Component | Value | Ref Range | + +-------+ + | UR | 67.7 | 0 - 150 | | PROTEIN/CREATININE | | | + +-------+ + + + + | Specimen | Performing Laboratory | + + + | Urine - Urine, | [facility] [address] [place] [address], [place] | | Unspecified Source | [id number] | + + + + + | Narrative | + + | PROTEIN, URINE - 13 - 0.0 - 50.0 CREATININE, URINE - 192 | + + Renal function panel (08/13/2017) + + + + | Component | Value | Ref Range | + + + + | GLUCOSE | 103 (A) | 70 - 100 mg/dL | + + + + | BUN | 18 | 6 - 23 mg/dL | + + + + | CREATININE | 1.43 (A) | 0.70 - 1.25 mg/dL | + + + + | PHOSPHORUS | | mg/dL | + + + + | Albumin | 4.0 | 3.5 - 5.0 | + + + + | SODIUM | 141 | 132 - 143 mmol/L | + + + + | POTASSIUM | 4.3 | 3.6 - 5.1 mmol/L | + + + + | CHLORIDE | 105 | 95 - 112 mmol/L | + + + + | CO2 | 25 | 19 - 31 mmol/L | + + + + | ANION GAP AGAP | 15.3 | 7 - 21 mmol/L | + + + + | GFR MDRD Non Af Amer | | | + + + + | Phosphorus,Inorganic | 3.4 | 2.5 - 5.0 | + + + + | BUN/CREAT | 12.6 | 6.0 - 28.6 | + + + + | CALCIUM | 9.6 | 8.4 - 10.2 mg/dL | + + + + | EGFR | 36 | mg/dL | + + + + + + + | Specimen | Performing Laboratory | + + + | Blood | [facility] [address] [place] [address] [address] [place], [place] | | | [address] | + + + CBC W/Auto Diff (Reflex to Manual) (08/13/2017) + +-------+ + | Component | Value | Ref Range | + +-------+ + | WBC | 6.5 | 4.5 - 11.0 10^3/mL | + +-------+ + | RBC | 4.21 | 3.8 - 5.1 10^6/ L | + +-------+ + | HGB | 12.7 | 12.0 - 16.0 g/dL | + +-------+ + | HCT | 38.3 | 35 - 45 % | + +-------+ + | MCV | 91.0 | 81 - 99 fL | + +-------+ + | MCH | 30 | 27 - 33 pg | + +-------+ + | MCHC | 33 | 30 - 36 g/dL | + +-------+ + | PLT | 290 | 140 - 440 K/ L | + +-------+ + | RDW SD | 14.0 | 10.5 - 15.0 % | + +-------+ + | MPV | | fL | + +-------+ + | DIFF TYPE | | | + +-------+ + | NEUTROPHILS | 64.8 | 39 - 80 % | + +-------+ + | LYMPHOCYTES | 26.8 | 24 - 44 % | + +-------+ + | MONOCYTES | 6.4 | 0 - 12 % | + +-------+ + | EOSINOPHILS | 1.1 | 0 - 6 % | + +-------+ + | BASOPHILS | 0.9 | 0 - 2 % | + +-------+ + | NEUTROPHILS ABS | | / L | + +-------+ + | LYMPHOCYTES ABS | | / L | + +-------+ + | MONOCYTES ABS | | / L | + +-------+ + | EOSINOPHILS ABS | | / L | + +-------+ + | BASOPHILS ABS | | / L | + +-------+ + + + + | Specimen | Performing Laboratory | + + + | Blood | [facility] [address], [facility] [address] [place] | | | [id number] | + + + Urinalysis w/microscopic (reflex to culture) (08/13/2017) + + + + | Component | Value | Ref Range | + + + + | COLOR UA | Light Yellow | | + + + + | CLARITY | Clear | | + + + + | SPECIFIC | 1.016 | 1.005 - 1.030 | | GRAVITY,URINE | | | + + + + | LEUKOCYTE ESTERASE | Negative | | + + + + | NITRITE | Negative | | + + + + | UROBILINOGEN | Normal | | + + + + | PROTEIN | NEG | | + + + + | PH,URINE | 5 | 5 - 9 | + + + + | BLOOD | Negative | | + + + + | KETONES | NEG | | + + + + | BILIRUBIN | Negative | | + + + + | GLUCOSE | Negative | | + + + + | WBC | 2 | 0 - 4 | + + + + | RBC | 0 | 0 - 4 | + + + + | EPITHELIAL | SQUAMOUS1+ | 0-1+SQUAMOUS | + + + + | BACTERIA | None Seen | | + + + + | Hyaline Cast | Comment: HYALINE 2+ | | + + + + + + + | Specimen | Performing Laboratory | + + + | | [facility] [address] | | | [address] | + + + PTH, intact and calcium (08/13/2017) + +-------+ + | Component | Value | Ref Range | + +-------+ + | PTH,INTACT | 49.02 | 15 - 65 | + +-------+ + | CALCIUM | 9.6 | 8.4 - 10.2 | + +-------+ + + + + | Specimen | Performing Laboratory | + + + | Blood | [facility] [address] [place] [address], [facility] [address] [place], [place] | | | [address] | + + + in this encounter Visit Diagnoses Not on filein this encounter"
--- OUTSIDE RECORDS SUMMARY | ~2017-09-18 | XMS | Encounter Summary ---
Demographics + + + | Address | [address] | | | [place] [address] | + + + | Home Phone | | + + + | Preferred Language | Unknown | + + + | Marital Status | | + + + | Lutheran Affiliation | 1041 | + + + | Race | Unknown | + + + | Ethnic Group | Unknown | + + + Author + + + | Author | [facility] | + + + | Organization | [facility] | + + + | Address | Unknown | + + + | Phone | Unavailable | + + + Support + + + + + | Name | Relationship | Address | Phone | + + + + + | Tod Mahoney | ECON | [address] | | | | | [place], | | | | | [place] [address] | | + + + + + | Duke Mahoney | ECON | Unknown | | + + + + + Care Team Providers + +------+ + | Care Teacher Aide Name | Role | Phone | + +------+ + | Pollo Bass MD | PCP | | + +------+ + Reason for Visit + + + | Reason | Comments | + + + | Neck Pain | f/u injection | + + + Consult and Treat (Routine) + +--------+ + + + + | Status | Reason | Specialty | Diagnoses / | Referred By | Referred To | | | | | Procedures | Contact | Contact | + +--------+ + + + + | Authorized | | Pain | Diagnoses | Self, | Motaghi, | | | | Management - | Right hip | Referred | DO Alan | | | | Anesthesiolog | pain 4 wk | Phone: | [address] | | | | y / | f/u inj | [phone] | [facility], | | | | Dolorology | 07/23/16 | Fax: | [place] [address] | | | | | Procedures | [phone] | Phone: | | | | | [facility] | | [phone] | | | | | UP | | Fax: | | | | | | | [phone] | + +--------+ + + + + Encounter Details +--------+---------+ + + + | Date | Type | Department | Care Team | Description | +--------+---------+ + + + | 07/10/ | Office | [facility] | Alan Encarnacion DO | Cervicalgia (Primary | | 2018 | Visit | [facility] | [address] | Dx); Cervical | | | | MEDICINE RAJESH | [place] [address] | spinal stenosis; | | | | PAIN [address] | [phone] | Spondylosis of | | | | [place], [place] | | cervical region | | | | [address] | | without myelopathy | | | | [phone] | | or radiculopathy; | | | | | | Hip pain, chronic, | | | | | | right; Trochanteric | | | | | | bursitis of right | | | | | | hip; Right hip pain | +--------+---------+ + + + Social History [...] + + + | Blood Pressure | 138/74 | 07/10/2017 1:23 PM PST | + + + + | Pulse | 57 | 07/10/2017 1:23 PM PST | + + + + | Temperature | - | - | + + + + | Respiratory Rate | - | - | + + + + | Oxygen Saturation | 95% | 07/10/2017 1:23 PM PST | + + + + | Inhaled Oxygen | - | - | | Concentration | | | + + + + | Weight | 93.9 kg (207 lb) | 07/10/2017 1:23 PM PST | + + + + | Height | 165.1 cm (5' 5") | 07/10/2017 1:23 PM PST | + + + + | Body Mass Index | 34.45 | 07/10/2017 1:23 PM PST | + + + + in this encounter Progress Notes Alan Encarnacion DO - 07/10/2017 1:35 PM PSTFormatting of this note may be different from rolf lin. [facility]: Interventional Pain Management 07/10/2017 Bridgette Mahoney 1950 Chief Complaint Patient presents with Neck Pain f/u injection HISTORY OF PRESENT ILLNESS Neck Pain This is a chronic problem. The current episode started more than 1 year ago. The problem oc curs intermittently. The pain is present in the left side and right side. The pain is at a s everity of 5/10. The pain is moderate. Pertinent negatives include no chest pain, fever, hea daches, numbness, photophobia, trouble swallowing or weakness. REVIEW OF SYSTEMS Review of Systems Constitutional: Negative for activity change, appetite change, fatigue and fever. HENT: Negative for congestion, trouble swallowing and voice change. Eyes: Negative for photophobia, discharge and visual disturbance. Respiratory: Negative for apnea, cough, shortness of breath and wheezing. Cardiovascular: Negative for chest pain, palpitations and leg swelling. Gastrointestinal: Negative for abdominal pain, diarrhea, nausea and vomiting. Endocrine: Negative for cold intolerance, heat intolerance and polyuria. Musculoskeletal: Positive for neck pain. Negative for back pain and joint swelling. Skin: Negative for color change and rash. Allergic/Immunologic: Negative for environmental allergies and food allergies. Neurological: Negative for dizziness, seizures, weakness, light-headedness, numbness and he adaches. Hematological: Does not bruise/bleed easily. Psychiatric/Behavioral: Negative for dysphoric mood and suicidal ideas. The patient is not nervous/anxious. All other systems reviewed and are negative. Past Medical History Diagnosis Date Arthralgia Bipolar disorder (HCC) Hyperlipidemia Hypertension Hyperthyroidism 04/05/2015 rx Impaired fasting glucose Menopause MRSA (methicillin resistant Staphylococcus aureus) 2007 Nausea after anesthesia Photosensitization due to sun Renal failure stage 3 Skin disorder Pigment issues Sleep apnea CPAP Vitamin D deficiency Past Surgical History Procedure Laterality Date APPENDECTOMY 2010 BREAST SURGERY 1977 CATARACT EXTRACTION 2012 SECTION 1988 and 1990 HARDWARE PRESENT right hip, c spine HIP SURGERY Right 02/2017 total NECK SURGERY N/A 2009 and 2013 disks RADIOFREQUENCY NEUROTOMY Right 06/13/2017 Procedure: RADIOFREQUENCY NEUROTOMY; Surgeon: Alan Encarnacion DO; Location: [facility]; Service: Pain Management; Laterality: Right; C3-6 RADIOFREQUENCY NEUROTOMY Left 06/10/2017 Procedure: RADIOFREQUENCY NEUROTOMY; Surgeon: Alan Encarnacion DO; Location: [facility]; Service: Pain Management; Laterality: Left; C3-6 STEROID INJECTION HIP Right 10/29/2016 Procedure: HIP-INTRAARTICULAR INJECTION; Surgeon: Alan Encarnacion DO; Location: [facility]; Service: Pain Management; Laterality: Right; Right hip injection TEMPOROMANDIBULAR JOINT ARTHROSCOPY Right 1989 done on her jaw TONSILLECTOMY 1966 UNLISTED PROCEDURE ARTHROSCOPY Right 03/04/2017 No Known Allergies Prior to Admission medications Medication Sig Start Date End Date Taking? Authorizing Provider ascorbic acid (VITAMIN C) 500 MG tablet Take 500 mg by mouth daily. Historical Provider cholecalciferol (VITAMIN D-3) 1000 units tablet Take 1,000 Units by mouth daily. Histori igor Provider diltiazem (CARDIZEM SR) 60 MG 12 hr capsule Take 60 mg by mouth 2 (two) times daily. His torical Provider lamoTRIgine (LAMICTAL) 100 MG tablet Take 100 mg by mouth daily. Historical Provider losartan (COZAAR) 100 MG tablet Take 100 mg by mouth daily. Historical Provider methimazole (TAPAZOLE) 5 MG tablet Take 0.5 tablets by mouth daily. Patient not taking: Reported on 06/06/2017 11/05/16 Steven Craft MD metoprolol (LOPRESSOR) 50 MG tablet Take 0.5 tablets by mouth 2 (two) times daily. 01/24/17 YOU Lopez sertraline (ZOLOFT) 100 MG tablet Take 100 mg by mouth daily. Historical Provider simvastatin (ZOCOR) 40 MG tablet Take 40 mg by mouth nightly. Historical Provider spironolactone (ALDACTONE) 25 MG tablet Take 25 mg by mouth daily. Historical Provider tizanidine (ZANAFLEX) 4 MG capsule Take 4 mg by mouth 3 (three) times daily. Historical Provider traZODone (DESYREL) 100 MG tablet Take 150 mg by mouth nightly. Historical Provider Family History Problem Relation Age of Onset Heart disease Father Emphysema Mother Heart disease Paternal Grandmother Heart disease Paternal Grandfather Social History Social History Marital status: Spouse name: N/A Number of children: N/A Years of education: N/A Occupational History Not on file. Social History Main Topics Smoking status: Never Smoker Smokeless tobacco: Never Used Alcohol use No Drug use: No Sexual activity: Yes Comment: not asked Other Topics Concern Not on file Social History Narrative No narrative on file PHYSICAL EXAM Vital Signs: BP 138/74 (BP Location: Left upper arm, Patient Position: Sitting) | Pulse 57 | Ht 1.651 m (5' 5") | Wt 93.9 kg (207 lb) | SpO2 95% | BMI 34.45 kg/m Physical Exam Constitutional: She is oriented to person, place, and time. She appears well-developed and well-nourished. HENT: Head: Normocephalic and atraumatic. Eyes: Conjunctivae are normal. Neck: No tracheal deviation present. Pulmonary/Chest: Effort normal. Neurological: She is alert and oriented to person, place, and time. Skin: Skin is warm and dry. Psychiatric: She has a normal mood and affect. Her behavior is normal. Judgment normal. Vitals reviewed. Back Exam Other Gait: antalgic DATA No results found. PROBLEM LIST 1. Cervicalgia 2. Cervical spinal stenosis 3. Spondylosis of cervical region without myelopathy or radiculopathy 4. Hip pain, chronic, right 5. Trochanteric bursitis of right hip 6. Right hip pain ASSESSMENT & PLAN Mrs. Mahoney is a 66-year-old female here, following up after radiofrequency ablation of her cervical spine. She has gotten 80% relief, and is very happy with the results. At this time , she is having more muscular trigger point type pain. We are going to send her to physical therapy for soft tissue work. She is going to get massage therapy and then followup in a sat to a month and a half for reevaluation. At that time, if she is still having those sympto ms we did discuss the possibility of doing trigger point injections in her trapezius muscles . She does agree with the plan. She was encouraged to call with any questions that may arise . We will see her after she has finished her physical therapy. We do look forward to continu ing to participate in her care. Patient is currently participating in home exercises. Primary Care Physician: POLLO BASS follow up Alan Encarnacion DO 07/10/2017 This document has been prepared with [employer] voice recognition system. The possibility of "s ound alike" production administrative assistant errors, and additions, or deletions may occur. If there is any que stion with respect to clarity of the message being conveyed, please contact me directly for clarification.in this encounter Plan of Treatment Not on fileas of this encounter Visit Diagnoses + + | Diagnosis | + + | Cervicalgia - Primary | + + | Cervical spinal stenosis | + + | Spinal stenosis in cervical region | + + | Spondylosis of cervical region without myelopathy or radiculopathy | + + | Cervical spondylosis without myelopathy | + + | Hip pain, chronic, right | + + | Trochanteric bursitis of right hip | + + | Enthesopathy of hip region | + + | Right hip pain | + + | Pain in joint, pelvic region and thigh | + +
--- OUTSIDE RECORDS SUMMARY | ~2017-09-18 | XMS | Encounter Summary ---
Demographics + + + | Address | [address] | | | [place] [address] | + + + | Home Phone | | + + + | Preferred Language | Unknown | + + + | Marital Status | | + + + | Congregation Affiliation | 1041 | + + + | Race | Unknown | + + + | Ethnic Group | Unknown | + + + Author + + + | Author | [facility] | + + + | Organization | [facility] | + + + | Address | Unknown | + + + | Phone | Unavailable | + + + Support + + + + + | Name | Relationship | Address | Phone | + + + + + | Tod Mahoney | ECON | [address] | | | | | [place], | | | | | [place] [address] | | + + + + + | Duke Mahoney | ECON | Unknown | | + + + + + Care Team Providers + +------+ + | Care Review Trainer Name | Role | Phone | + [...] | | | | | [place] [address] | | | | | | [phone] | | | +--------+ + + + [...]
--- OUTSIDE RECORDS SUMMARY | ~2017-09-18 | XMS | Encounter Summary ---
Demographics + + + | Address | [address] | | | [place] [address] | + + + | Home Phone | | + + + | Preferred Language | Unknown | + + + | Marital Status | | + + + | Mandaeism Affiliation | 1041 | + + + | Race | Unknown | + + + | Ethnic Group | Unknown | + + + Author + + + | Author | [facility] | + + + | Organization | [facility] | + + + | Address | Unknown | + + + | Phone | Unavailable | + + + Support + + + + + | Name | Relationship | Address | Phone | + + + + + | Tod Mahoney | ECON | [address] | | | | | [place], | | | | | [place] [address] | | + + + + + | Duke Mahoney | ECON | Unknown | | + + + + + Care Team Providers + +------+ + | Care Dial Marker Name | Role | Phone | + [...] | | amadou | | | | [place] [address] | | | | | | [phone] | | | +--------+ + + + [...] + + | Blood | [facility] [address] [place] [address] | | | [address] | + + + Protein / creatinine ratio, urine (08/13/2017) + +-------+ + | Component | Value | Ref Range | + +-------+ + | UR | 67.7 | 0 - 150 | | PROTEIN/CREATININE | | | + +-------+ + + + + | Specimen | Performing Laboratory | + + + | Urine - Urine, | [facility] [address] [place] [address], [place] | | Unspecified Source | [id number] | + + + + + | [...] + + | Blood | [facility] [address] [place] [address] [address] [place], [place] | | | [address] | + + + CBC W/Auto Diff [...] + | Blood | [facility] [address], [facility] [address] [place] | | | [address] | + + + Urinalysis w/microscopic (reflex [...] + + | | [facility] [address] | | | [address] | + + + PTH, intact and calcium (08/13/2017) + +-------+ + | Component | Value | Ref Range | + +-------+ + | PTH,INTACT | 49.02 | 15 - 65 | + +-------+ + | CALCIUM | 9.6 | 8.4 - 10.2 | + +-------+ + + + + | Specimen | Performing Laboratory | + + + | Blood | [facility] [address] [place] [address], [facility] [address] [place], [place] | | | [address] | + + + in this encounter Visit Diagnoses Not on filein this encounter"
--- OUTSIDE RECORDS SUMMARY | ~2017-09-18 | XMS | Encounter Summary ---
Demographics + + + | Address | [address] | | | [place] [address] | + + + | Home Phone | | + + + | Preferred Language | Unknown | + + + | Marital Status | | + + + | Baptism Affiliation | 1041 | + + + | Race | Unknown | + + + | Ethnic Group | Unknown | + + + Author + + + | Author | [facility] | + + + | Organization | [facility] | + + + | Address | Unknown | + + + | Phone | Unavailable | + + + Support + + + + + | Name | Relationship | Address | Phone | + + + + + | Tod Mahoney | ECON | [address] | | | | | [place], | | | | | [place] [address] | | + + + + + | Duke Mahoney | ECON | Unknown | | + + + + + Care Team Providers + +------+ + | Care Presto Log Operator Name | Role | Phone | + [...] | pain 4 wk | Phone: | [address] | | | | y / | f/u inj | [phone] | [facility], | | | | Dolorology | 07/23/16 | Fax: | [place] [address] | | | | | Procedures | [phone] | Phone: | | | | | [facility] | | [phone] | | | | | UP | | Fax: | | | | | | | [phone] | + +--------+ + + + + Encounter Details +--------+---------+ + + + | Date | Type | Department | Care Team | Description | +--------+---------+ + + + | 07/10/ | Office | [facility] | Alan Encarnacion DO | Cervicalgia (Primary | | 2018 | Visit | [facility] | [address] | Dx); Cervical | | | | MEDICINE RAJESH | [place] [address] | spinal stenosis; | | | | PAIN [address] | [phone] | Spondylosis of | | | | [place], [place] | | cervical region | | | | [address] | | without myelopathy | | | | [phone] | | or radiculopathy; | | | [...] note may be different from rolf lin. [facility]: Interventional Pain Management 07/10/2017 Bridgette [...] RADIOFREQUENCY NEUROTOMY; Surgeon: Alan Encarnacion DO; Location: [facility]; Service: Pain Management; Laterality: Right; C3-6 RADIOFREQUENCY NEUROTOMY Left 06/10/2017 Procedure: RADIOFREQUENCY NEUROTOMY; Surgeon: Alan Encarnacion DO; Location: [facility]; Service: Pain Management; Laterality: Left; C3-6 STEROID INJECTION HIP Right 10/29/2016 Procedure: HIP-INTRAARTICULAR INJECTION; Surgeon: Alan Encarnacion DO; Location: [facility]; Service: Pain Management; Laterality: Right; Right hip [...] 07/10/2017 This document has been prepared with [employer] voice recognition system. The possibility of "s ound alike" garment supervisor errors, and additions, or deletions may occur. [...]
--- OUTSIDE RECORDS SUMMARY | ~2017-09-18 | XMS | Clinical Summary ---
Demographics + + + | Address | [address] | | | [place] [address] | + + + | Home Phone | | + + + | Preferred Language | Unknown | + + + | Marital Status | | + + + | Nondenominational Affiliation | 1041 | + + + | Race | Unknown | + + + | Ethnic Group | Unknown | + + + Author + + + | Author | [email or web address] | + + + | Organization | [email or web address] | + + + | Address | Unknown | + + + | Phone | Unavailable | + + + Support + + + + + | Name | Relationship | Address | Phone | + + + + + | Tod Marrero | ECON | [address] | | | | | [place], | | | | | [place] [address] | | + + + + + | Duke Marrero | ECON | Unknown | | + + + + + Care Team Providers + +------+ + | Care Sales Representative Jewelry Name | Role | Phone | + +------+ + | Jaylon Bass MD | PP | | + +------+ + Allergies No Known Allergies Current Medications + + +--------+---------+------+------+-------+ | Prescription | Sig. | Disp. | Refills | Star | End | Statu | | | | | | t | Date | s | | | | | | Date | | | + + +--------+---------+------+------+-------+ | losartan (COZAAR) | Take 100 mg by mouth | | | | | Activ | | 100 MG tablet | daily. | | | | | e | + + +--------+---------+------+------+-------+ | traZODone | Take 150 mg by mouth | | | | | Activ | | (DESYREL) 100 MG | nightly. | | | | | e | | tablet | | | | | | | + + +--------+---------+------+------+-------+ | lamoTRIgine | Take 100 mg by mouth | | | | | Activ | | (LAMICTAL) 100 MG | daily. | | | | | e | | tablet | | | | | | | + + +--------+---------+------+------+-------+ | sertraline | Take 100 mg by mouth | | | | | Activ | | (ZOLOFT) 100 MG | daily. | | | | | e | | tablet | | | | | | | + + +--------+---------+------+------+-------+ | simvastatin | Take 40 mg by mouth | | | | | Activ | | (ZOCOR) 40 MG tablet | nightly. | | | | | e | + + +--------+---------+------+------+-------+ | spironolactone | Take 25 mg by mouth | | | | | Activ | | (ALDACTONE) 25 MG | daily. | | | | | e | | tablet | | | | | | | + + +--------+---------+------+------+-------+ | tizanidine | Take 4 mg by mouth 3 | | | | | Activ | | (ZANAFLEX) 4 MG | (three) times | | | | | e | | capsule | daily. | | | | | | + + +--------+---------+------+------+-------+ | diltiazem | Take 60 mg by mouth | | | | | Activ | | (CARDIZEM SR) 60 MG | 2 (two) times daily. | | | | | e | | 12 hr capsule | | | | | | | + + +--------+---------+------+------+-------+ | methimazole | Take 0.5 tablets by | 30 | 3 | 06/1 | | Activ | | (TAPAZOLE) 5 MG | mouth daily. | tablet | | / | | e | | tablet | | | | 17 | | | + + +--------+---------+------+------+-------+ | metoprolol | Take 0.5 tablets by | | | 09/0 | | Activ | | (LOPRESSOR) 50 MG | mouth 2 (two) times | | | /20 | | e | | tablet | daily. | | | 17 | | | + + +--------+---------+------+------+-------+ | ascorbic acid | Take 500 mg by mouth | | | | | Activ | | (VITAMIN C) 500 MG | daily. | | | | | e | | tablet | | | | | | | + + +--------+---------+------+------+-------+ | cholecalciferol | Take 1,000 Units by | | | | | Activ | | (VITAMIN D-3) 1000 | mouth daily. | | | | | e | | units tablet | | | | | | | + + +--------+---------+------+------+-------+ Active Problems + + + | Problem | Noted Date | + + + | Spondylosis of cervical region without myelopathy or | 06/05/2017 | | radiculopathy | | + + + + + | Overview: Added automatically from request for surgery [id number] | + + + + + | Microalbuminuria | 07/06/2016 | + + + | Hyperuricemia | 03/16/2016 | + + + | CKD (chronic kidney disease), stage III | 02/06/2016 | + + + | Dyslipidemia | 02/06/2016 | + + + | Primary osteoarthritis involving multiple joints | 02/06/2016 | + + + | Non morbid obesity due to excess calories | 02/06/2016 | + + + | Hyperthyroidism | 04/05/2015 | + + + | Graves disease | 04/05/2015 | + + + | Essential hypertension, benign | 04/05/2015 | + + + Encounters +--------+ + + + + | Date | Type | Specialty | Care Team | Description | +--------+ + + + + | 08/19/ | Office | | Neftali Cevallos, | CKD (chronic kidney | | 2018 | Visit | | DELI COOK | disease), stage III | | | | | | (Primary Dx); | | | | | | Essential | | | | | | hypertension, | | | | | | benign; | | | | | | Hyperuricemia; | | | | | | Microalbuminuria | +--------+ + + + + | 08/15/ | Documentati | | Tanvir, | Labs Only ([facility] | | 2017 | on Only | | MING Wallace | - 08/13/17 - | | | | | | palmblad) | +--------+ + + + + | 08/13/ | Telephone | | Josephine Black CMA | Other (Appointment | | 2018 | | | | and Lab reminder) | +--------+ + + + + | 07/10/ | Office | | Alan Encarnacion DO | Cervicalgia (Primary | | 2018 | Visit | | | Dx); Cervical | | | | | | spinal stenosis; | | | | | | Spondylosis of | | | | | | cervical region | | | | | | without myelopathy | | | | | | or radiculopathy; | | | | | | Hip pain, chronic, | | | | | | right; Trochanteric | | | | | | bursitis of right | | | | | | hip; Right hip pain | +--------+ + + + + from Last 3 Months Family History + + +------+ + | Medical History | Relation | Name | Comments | + + +------+ + | Heart disease | Father | | | + + +------+ + | Emphysema | Mother | | | + + +------+ + | Heart disease | Paternal | | | | | Grandfath | | | | | er | | | + + +------+ + | Heart disease | Paternal | | | | | Grandmoth | | | | | er | | | + + +------+ + + +------+ + + | Relation | Name | Status | Comments | + +------+ + + | Father | | | | + +------+ + + | Mother | | | | + +------+ + + | Paternal Grandfather | | | | + +------+ + + | Paternal Grandmother | | | | + +------+ + + Social History + +-------+ +--------+------+ [...] on file | | + + + Last Filed Vital Signs + + + [...] + + + | Respiratory Rate | 15 | 06/13/2017 9:21 AM PST | + + + + | Oxygen [...] AM PDT | + + + + Plan of Treatment + + + + + | Health Maintenance | Due Date | Last Done | Comments | + + + + + | Vaccine: | | | | | Dtap/Tdap/Td (1 - | 8 | | | | Tdap) | | | | + + + + + | Breast Cancer | | | | | Screening | 9 | | | | (Mammogram) | | | | + + + + + | Colon Cancer | | | | | Screening | 9 | | | | (Colonoscopy) | | | | + + + + + | DEXA SCAN SCREENING | | | | | | 4 | | | + + + + + | Vaccine: | | | | | Pneumococcal 65+ | 4 | | | | Low/Medium Risk (1 | | | | | of 2 - PCV13) | | | | + + + + + | Vaccine: Influenza | | | | | (Season Ended) | 8 | | | + + + + + Results Urinalysis w/microscopic (reflex to culture) (08/13/2017) + [...] + + | | [facility] [address], [address] [place], [place] | | | [address] | + + + PTH, intact and [...] + | Blood | [facility] [address], [address] [place], [place] | | | [address] | + + + Protein / creatinine ratio, urine (08/13/2017) + +-------+ + | Component | Value | Ref Range | + +-------+ + | UR | 67.7 | 0 - 150 | | PROTEIN/CREATININE | | | + +-------+ + + + + | Specimen | Performing Laboratory | + + + | Urine - Urine, | [facility] [address] [facility] [address] [place], [place] | | Unspecified Source | [id number] | + + + + + | Narrative | + + | PROTEIN, URINE - 13 - 0.0 - 50.0 CREATININE, URINE - 192 | + + CBC W/Auto Diff (Reflex to [...] + + | Blood | [facility] [address] [place] [address] | | | [address] | + + + Uric acid (08/13/2017) + +-------+ + | Component | Value | Ref Range | + +-------+ + | URIC ACID | 5.7 | 2.3 - 6.6 | + +-------+ + + + + | Specimen | Performing Laboratory | + + + | Blood | [facility] [address] | | | [address] | + + + Renal function panel (08/13/2017) + [...] + | Blood | [facility] [address] [facility] [address] [place] | | | [address] | + + + from Last 3 Months Insurance + +--------+ +------+-------+ + | Payer | Benefi | Subscriber | Type | Phone | Address | | | t Plan | ID | | | | | | / | | | | | | | Group | | | | | + +--------+ +------+-------+ + | MEDICARE | MEDICA | xxxxxxxxxx | | | [address] | | | RE | | | | [place] [phone] | | | IP-OP | | | | | + +--------+ +------+-------+ + | COMMERCIAL OTHER | STATE | xxxxxxxxx | | | | | | FARM | | | | | | | MEDICA | | | | | | | L | | | | | | | INSURA | | | | | | | NCE | | | | | + +--------+ +------+-------+ + + +--------+ +--------+ + + | Guarantor Name | Accoun | Relation to | Date | Phone | Billing Address | | | t Type | Patient | of | | | | | | | | | | + +--------+ +--------+ + + | ROCIO MARRERO | Person | Self [birth year] Home: | [address] | | | [place] | | 1951 | [phone] | [place] [employer] | | | dajuan | | | [phone] | [place] [address] | + +--------+ +--------+ + +
--- OUTSIDE RECORDS SUMMARY | ~2017-09-18 | XMS | Encounter Summary ---
Demographics + + + | Address | [address] | | | [place] [address] | + + + | Home Phone | | + + + | Preferred Language | Unknown | + + + | Marital Status | | + + + | Rastafarian Affiliation | 1041 | + + + | Race | Unknown | + + + | Ethnic Group | Unknown | + + + Author + + + | Author | [facility] | + + + | Organization | [facility] [employer] [facility] | + + + | Address | Unknown | + + + | Phone | Unavailable | + + + Support + + + + + | Name | Relationship | Address | Phone | + + + + + | Tod Mahoney | ECON | [address] | | | | | [place], | | | | | [place] [address] | | + + + + + | Duke Mahoney | JANENE | Unknown | | + + + + + Care Team Providers + +------+ + | Care Summer Clerk Name | Role | Phone | + +------+ + | Jaylon Bass MD | PCP | | + +------+ + Encounter Details +--------+---------+ + + + | Date | Type | Department | Care Team | Description | +--------+---------+ + + + | 08/19/ | Office | [facility] | Neftali Cevallos, | CKD (chronic kidney | | 2018 | Visit | [address] | [place] | disease), stage III | | | | [address] | [address] | (Primary Dx); | | | | [address], [place] | [place] [address] | Essential | | | | [address] | [phone] | hypertension, | | | | | [...] such as Protonix (omeprazole), talk to your [facility] care provider about if you need this medication terminal worker. Call our office or your PCP if [...] this patient and be part of the [place] re team. Please do not hesitate to call me at any time with questions or concerns. Truly yours, Neftali Cevallos [facility] This note prepared with voice [...]
--- OUTSIDE RECORDS SUMMARY | ~2017-09-18 | XMS | Clinical Summary ---
Demographics + + + | Address | [address] | | | [place] [address] | + + + | Home Phone | | + + + | Preferred Language | Unknown | + + + | Marital Status | | + + + | Temple Affiliation | 1041 | + + + | Race | Unknown | + + + | Ethnic Group | Unknown | + + + Author + + + | Author | [facility] | + + + | Organization | [facility] | + + + | Address | Unknown | + + + | Phone | Unavailable | + + + Support + + + + + | Name | Relationship | Address | Phone | + + + + + | Tod Marrero | ECON | [address] | | | | | [place], | | | | | [place] [address] | | + + + + + | Duke Marrero | ECON | Unknown | | + + + + + Care Team Providers + +------+ + | Care Necktie Maker Name | Role | Phone | + [...] Overview: Added automatically from request for surgery [id number] | + + + + + | [...] | | 2018 | Visit | | MOTH EXTERMINATOR | disease), stage III | | | [...] + + | | [facility] [address], [address] [place], [place] | | | [address] | + + + PTH, intact and [...] + | Blood | [facility] [address], [address] [place], [place] | | | [address] | + + + Protein / creatinine ratio, urine (08/13/2017) + +-------+ + | Component | Value | Ref Range | + +-------+ + | UR | 67.7 | 0 - 150 | | PROTEIN/CREATININE | | | + +-------+ + + + + | Specimen | Performing Laboratory | + + + | Urine - Urine, | [facility] [address] [facility] [address] [place], [place] | | Unspecified Source | [id number] | + + + + + | [...] + + | Blood | [facility] [address] [place] [address] | | | [address] | + + + Uric acid (08/13/2017) + +-------+ + | Component | Value | Ref Range | + +-------+ + | URIC ACID | 5.7 | 2.3 - 6.6 | + +-------+ + + + + | Specimen | Performing Laboratory | + + + | Blood | [facility] [address] | | | [address] | + + + Renal function panel [...] | Blood | [facility] [address] [facility] [address] [place] | | | [address] | + + + from Last 3 [...] | xxxxxxxxxx | | | [address] | | | RE | | | | [place] [address] | | | IP-OP | | | [...] | Self | [birth year] | Home: | [address] | | | [place] | | 1951 | [phone] | [address] [place] [employer] | | | dajuan | | | [phone] | [place] [address] | + +--------+ +--------+ + +
[~2017-09-18 22:58] MED LIST changes: +DILTIAZEM ER240 MG PO; +FERROUS SULFAT325 MG PO; +HYDROMORPHONE HC2 MG PO; +LAMICTAL100 MG PO; +LOSARTAN POTAS100 MG PO; +METHIMAZOLE5 MG PO; +METOPROLOL TART25 MG PO; +MIRALAX17 GM PO; +OXYCODONE HCL5 MG PO; +SIMVASTATIN20 MG PO; +SPIRONOLACTONE1 EACH PO; +VENTOLIN HFA18 GM; +VITAMIN C500 M4 PO; +VITAMIN D1000 UNIT PO; +XARELTO10 MG PO
[2017-09-18] MEDS ORDERED: LOSARTAN POTAS100 MG PO (23:13)
== END 2017-09-18 23:45 | disposition home or self-care (01) ==
LOC: ED 22:58
PROC: 2W3NX1Z Immobilization of Right Upper Leg using Splint (ICD-10-PCS; principal; 2017-09-18)
DX: S83.91XA Sprain of unspecified site of right knee, initial encounter (principal); I10 Essential (primary) hypertension; F31.9 Bipolar disorder, unspecified; E78.00 Pure hypercholesterolemia, unspecified; Z88.6 Allergy status to analgesic agent; Z88.8 Allergy status to other drugs, medicaments and biological substances; Z79.899 Other long term (current) drug therapy; X58.XXXA Exposure to other specified factors, initial encounter; Y93.39 Activity, other involving climbing, rappelling and jumping off
CPT/HCPCS: 29505; 73560; 99283

== ENCOUNTER 2021-09-20 06:50 | Day surgery (SDC) | payer MEDICARE, BC ==
[~2021-09-20] VITALS: Ht 165.1 cm; Wt 87.3 kg
[~2021-09-20 06:50] MED LIST changes: +ASPIRIN EC325 MG PO; +DOXYCYCLINE HY100 MG PO; +GABAPENTIN600 MG PO; +HEALTHYLAX17 GM PO; +HYDROCHLOROTHIA25 MG PO; +IRON18 MG PO; +ONCE DAILY1 EACH PO; +ONDANSETRON ODT4 MG SL; +PEPCID20 MG PO; +SENNA LAX8.6 MG PO; +TOPROL XL50 MG PO; +TRAZODONE HCL150 MG PO; +TURMERIC500 M2 PO; +TYLENOL EXTRA500 MG PO; +VITAMIN C500 M2 PO; +VITAMIN D31000 UNIT PO
--- NOTE | 2021-09-20 14:23 | OR ---
[facility] [address] [place], [place] [address] Signed DATE OF OPERATION: 09/20/2021 SURGEON: Anat Pimentel MD PREOPERATIVE DIAGNOSES: 1. Personal history of colonic polyps, age 58 (2009). 2. Diverticulosis. 3. External hemorrhoids. POSTOPERATIVE DIAGNOSES: 1. A 4 mm polyps in transverse colon and 28 cm. 2. Cvuejtq-rv-gddgsjlu sigmoid diverticulosis. 3. Minimal internal and external hemorrhoids. PROCEDURE: Colonoscopy with hot biopsy. ESTIMATED BLOOD LOSS: None. INDICATIONS: Bridgette is a 70-year-old female, who came to see me for her initial screening colonoscopy in 2009 at the age of 58. We removed two hyperplastic polyps and serrated adenomatous polyps as well. She also has diverticulosis. We took out an internal anal skin tag at that time. We repeated the colonoscopy in 2014 at age of 64. Again, she has diverticulosis with tiny external hemorrhoids. We just finished up with the COVID pandemic. She now returns for followup colonoscopy. She has had her right knee and hip replaced as well as surgery on her cervical spine. She is now using CPAP mask for her sleep apnea and has chronic renal insufficiency. She has trouble with chronic pain in her previous TMJ surgery. Taken altogether, we asked for monitored anesthesia care on this occasion, that worked out very nicely for her. She also received preoperative antibiotics. No family history of colon cancer or polyps. She does get very nauseated with anesthesia and propofol helps in that regard as well. She really has no lower GI complaints. In the office, I gave her a pamphlet on colonoscopy. She recalls the nature of the test. There is risk including, but not limited to gas bloating, crampy abdominal pain, bleeding, perforation requiring surgery, and missed diagnosis. She had expressed understanding and wished to proceed. DESCRIPTION OF PROCEDURE: Bridgette was taken into our endoscopy suite and placed in the left lateral decubitus Electronically Signed By: ANAT PIMENTEL MD 09/20/21 1423 PATIENT NAME: BRIDGETTE MARRERO OPERATIVE REPORT DATE OF : 46 REPORT #: [id number] PHYSICIAN: ANAT PIMENTEL MD PCP: ETELVINA GOSS MD REPORT IS CONFIDENTIAL AND NOT TO BE RELEASED WITHOUT AUTHORIZATION [facility] [address] [place] [address] Signed position. She was given monitored anesthesia care to include propofol with our nurse hourly shift. She was given preoperative antibiotics. A digital rectal exam was performed. She has good sphincter tone. She has very tiny external hemorrhoid tissue. The adult colonoscope had been introduced and advanced all around into the cecum under direct visualization of camera. It took a little bit of abdominal compression in order to advance the scope. Her prep was quite excellent. We could easily see the appendiceal orifice and ileocecal valve. We took pictures throughout for photodocumentation. The scope was then slowly withdrawn. We removed the two polyps as mentioned above with the help of hot biopsy forceps. Again, she has diverticula in the sigmoid colon. They were moderate in size, minimal to moderate in number and scattered about. Upon retroflexion of scope, she has very minimal internal hemorrhoid tissue. We can see some scar from removing her previous internal anal skin tag. After this, the gas was suctioned out and the colonoscope removed. Bridgette tolerated the procedure quite well. RECOMMENDATIONS: Bridgette can follow up in my office in 7 to 14 days to review her results. Anat Pimentel MD ALB/MODL /[id number] cc: Maikel Jamil DO Patient Chart Anat Pimentel MD Copies: MAIKEL JAMIL ANDREW L MD ~ Electronically Signed By: ANAT PIMENTEL MD 09/20/21 1423 PATIENT NAME: BRIDGETTE MARRERO OPERATIVE REPORT DATE OF : 46 REPORT #: [id number] PHYSICIAN: ANAT PIMENTEL MD PCP: ETELVINA GOSS MD REPORT IS CONFIDENTIAL AND NOT TO BE RELEASED WITHOUT AUTHORIZATION
--- NOTE | 2021-09-21 18:29 | PATH ---
[facility] [address] [place], [place] [address] Signed SPECIMEN(S): A PROXIMAL TRANSVERSE COLON POLYP SPECIMEN(S): B COLON POLYP AT 28 CM SPECIMEN SOURCE: A. PROXIMAL TRANSVERSE COLON POLYP B. COLON POLYP AT 28 CM CLINICAL HISTORY: Colonoscopy. Preop: History of colon polyps, diverticulosis, external hemorrhoids. Postop: Diverticulosis, polyps, minimal external/internal hemorrhoids. FINAL PATHOLOGIC DIAGNOSIS: A. Colon, proximal transverse, polypectomy: - No significant histopathology. B. Colon, 28 cm, polypectomy: - Tubular adenoma, one fragment. - An additional fragment of colonic epithelium is within normal limits. - There is no evidence of high-grade dysplasia or malignancy. COMMENT: Regarding specimen A, the sections from the specimen contain architecturally normal colonic mucosa without crypt distortion. There is no acute or chronic inflammation. There is no evidence of microscopic colitis. There are no abnormal organisms or infiltrates. There are no polyps or neoplasms. TWK:shilpa:C2NR MICROSCOPIC EXAMINATION: Histologic sections of all submitted blocks are examined by light microscopy. These findings, together with the gross examination, support the pathologic diagnosis. GROSS DESCRIPTION: Two specimens are received in two containers, labeled "AF." A. The specimen, labeled "AF, #1," and designated on the requisition "proximal transverse colon polyp," is received in formalin and consists of one combs soft tissue fragment that measures 0.3 cm in greatest dimension. The specimen is entirely submitted in cassette (A1). B. The specimen, labeled "AF, #2," and designated on the requisition "colon polyp at 28 cm," is received in formalin and consists of two combs soft tissue PATIENT NAME: ROCIO MARRERO PATHOLOGY DATE OF : 46 REPORT #: [id number] PHYSICIAN: CAMERON [place] PCP: ETELVINA GOSS MD REPORT IS CONFIDENTIAL AND NOT TO BE RELEASED WITHOUT AUTHORIZATION [facility] [address] [place], [place] [address] Signed fragments that measure 0.3 cm in greatest dimension. The specimen is entirely submitted in cassette (B1). AT (under the direct supervision of a pathologist) The Gross Description was prepared using a voice recognition system. The report was reviewed for accuracy; however, sound-alike word errors, addition and/or deletions may occur. If there is any question about this report, please contact Client Services. PERFORMING LABORATORY: The technical component was performed by [facility], [address] [place] [address] (CLIA# [id number]). The professional interpretation [facility], [facility], [facility] [place] [address] [facility] [place] [place] [address] (CLIA#: [id number]). Diagnostician: Clay Stover MD Pathologist Electronically Signed 09/21/2021 Copies: ~ PATIENT NAME: ROCIO MARRERO PATHOLOGY DATE OF : 46 REPORT #: [id number] PHYSICIAN: CAMERON [place] PCP: ETELVINA GOSS MD REPORT IS CONFIDENTIAL AND NOT TO BE RELEASED WITHOUT AUTHORIZATION
== END 2021-09-20 09:20 | disposition home or self-care (01) ==
LOC: DS 06:50
PROVIDERS: ATTEND Colon & Rectal Surgery
PROC: 0DBL8ZX Excision of Transverse Colon, Via Natural or Artificial Opening Endoscopic, Diagnostic (ICD-10-PCS; principal; 2021-09-20 08:10)
DX: Z12.11 Encounter for screening for malignant neoplasm of colon (principal); D12.3 Benign neoplasm of transverse colon; I13.10 Hypertensive heart and chronic kidney disease without heart failure, with stage 1 through stage 4 chronic kidney disease, or unspecified chronic kidney disease; N18.4 Chronic kidney disease, stage 4 (severe); E78.5 Hyperlipidemia, unspecified; E05.90 Thyrotoxicosis, unspecified without thyrotoxic crisis or storm; F31.9 Bipolar disorder, unspecified; K57.30 Diverticulosis of large intestine without perforation or abscess without bleeding; G47.33 Obstructive sleep apnea (adult) (pediatric); E05.00 Thyrotoxicosis with diffuse goiter without thyrotoxic crisis or storm; K64.4 Residual hemorrhoidal skin tags; K64.8 Other hemorrhoids; Z96.651 Presence of right artificial knee joint; Z96.641 Presence of right artificial hip joint
CPT/HCPCS: J0690; J2704; J7121

== ENCOUNTER 2024-11-09 06:55 | Day surgery (SDC) | payer MEDICARE, OTHER ==
[~2024-11-09] VITALS: Ht 165.1 cm; Wt 98.0 kg
[~2024-11-09 06:55] MED LIST changes: +BACLOFEN20 MG PO; +DULOXETINE HCL30 MG PO; +LACTATED RINGER'S 1,000 ML IV SCH; +METHOCARBAMOL750 MG PO; +NORVASC10 MG PO; +Ropivacaine HCl 20 MG/10 ML AMP ONE; +TRAMADOL HCL50 MG PO; +ZOCOR20 MG PO
[2024-11-09] MEDS ORDERED: LIDOCAINE HCL 1% 5 ML SDV INJ ONE (07:00)
[2024-11-09] MEDS ORDERED: TRANEXAMIC ACID IN NACL,ISO-OS 1,000 MG/100 ML PIGGYBACK IV SCH ×2 (07:00→11:00)
[2024-11-09] MEDS ORDERED: INTRA-ARTICULAR ANALGESIC INJECTION XX SCH (07:00)
[2024-11-09] MEDS ORDERED: ROPIVACAINE IN 0.9% SOD CHL/PF 545 ML ELS.PMP.HR IRRIGATION SCH (07:00)
[2024-11-09] MEDS ORDERED: PANTOPRAZOLE SODIUM 40 MG TABEC PO SCH (07:00)
[2024-11-09] MEDS ORDERED: IBLOOD GLUCOSE TEST STRIP 1 EA TEST VI PRN (07:00)
[2024-11-09] MEDS ORDERED: OXYCODONE HCL 5 MG TAB PO SCH (07:00)
[2024-11-09] MEDS ORDERED: CEFAZOLIN SODIUM 2 GM/20 ML SYR IV SCH ×2 (07:00→16:00)
[2024-11-09] MEDS ORDERED: GABAPENTIN 600 MG TAB PO SCH (07:00)
[2024-11-09] MEDS ORDERED: ondansetron HCL 4 MG TAB PO SCH (07:00)
[2024-11-09 07:19] VITALS: BP 132/53
[2024-11-09] MEDS ORDERED: OXYCODONE HCL 5 MG TAB PO PRN (08:45)
[2024-11-09] MEDS ORDERED: KETOROLAC TROMETHAMINE 15 MG/ML VIAL IV PRN (08:45)
[2024-11-09] MEDS ORDERED: ondansetron HCL 4 MG TAB PO PRN (08:45)
[2024-11-09] MEDS ORDERED: KETAMINE in NS 50 MG/5 ML SYR ONE (09:30)
[2024-11-09] MEDS ORDERED: MAGNESIUM SULFATE 1 GM/2 ML VIAL ONE (09:30)
[2024-11-09] MEDS ORDERED: ePHEDrine sulfate 50 MG/ML AMP ONE (09:39)
[2024-11-09] MEDS ORDERED: propofoL 200 MG/20 ML VIAL ONE ×3 (09:47)
[2024-11-09] MEDS ORDERED: LIDOCAINE HCL 2% 5 ML SDV ONE ×2 (09:47)
[2024-11-09] MEDS ORDERED: Ropivacaine HCl 0.5% 30 ML VIAL ONE (10:15)
[2024-11-09] MEDS ORDERED: EPINEPHrine HCL 1 MG/ML AMP ONE (10:15)
[2024-11-09] MEDS ORDERED: fentaNYL citrate 100 MCG/2 ML VIAL ONE ×2 (10:20→10:32)
[2024-11-09] MEDS ORDERED: ACETAMINOPHEN 1,000 MG/100 ML VIAL ONE (10:25)
[2024-11-09] MEDS ORDERED: CEFUROXIME250 MG PO (10:33)
[2024-11-09] MEDS ORDERED: GABAPENTIN300 MG PO (10:34)
[2024-11-09] MEDS ORDERED: ACETAMINOPHEN500 MG PO (10:34)
[2024-11-09] MEDS ORDERED: CELECOXIB200 MG PO (10:34)
[2024-11-09] MEDS ORDERED: OXYCODONE HCL5 MG PO (10:34)
[2024-11-09] MEDS ORDERED: SENNA LAX8.6 MG PO (10:34)
[2024-11-09] MEDS ORDERED: ASPIRIN EC325 MG PO (10:35)
[2024-11-09] MEDS ORDERED: HYDROmorphone HCL 1 MG/ML SYR IV PRN (11:00)
[2024-11-09] MEDS ORDERED: NALOXONE HCL 0.4 MG SYR IV PRN (11:00)
[2024-11-09] MEDS ORDERED: fentaNYL citrate 50 MCG/ML SDV IV PRN (11:00)
--- NOTE | 2024-11-09 11:19 | NUR ---
11/09/24 Frankie Davis 1047: PT ARRIVED TO PACU VIA BED. PT ON 6L VIA MASK ON ARRIVAL. PT AWAKE AND TALKING. PTS SPINAL RESOLVED AT THE TIME OF ARRIVAL. BUSINESS IMPROVEMENT MANAGER HAD JUST GIVEN 200MCG FENTANYL PRIOR TO ARRIVAL. 1055: X-RAY TECH IN ROOM AT THIS TIME. 1100: PT COMPLAINING OF PAIN IN LEFT KNEE AT THIS TIME. PT REPORTING PAIN 6/10 AT THIS TIME.
[2024-11-09 11:45] VITALS: BP 127/74
[2024-11-09] MEDS ORDERED: ondansetron HCL 4 MG/2 ML VIAL IV ONE (12:15)
--- NOTE | 2024-11-09 12:25 | NUR ---
1145-PT ARRIVED BACK TO DS ON 2L O2 VIA NC, AAOX3, ANSWERING QUESTIONS APPROPRIATELY, AND ABLE TO MAKE HER NEEDS KNOWN. VS TAKEN. IV SITE ASSESSED. REPORT RECEIVED FROM CRIMP SETTER. SURGICAL SITE VISUALIZED WITH CRIMP SETTER. DRSG APPEARS CDI. CRYO CUFF IN PLACE TO L KNEE. L KNEE ELEVATED AND HEEL PROTECTORS IN PLACE WELL KNEE HIGH CARRIE HOSE AND FOOT PUMPS. ON-Q-PUMP AT 6. PT DENIES NAUSEA WHEN ASKED. PT RATES PAIN AT 3/10 IN L KNEE AND REQUESTS PO PAIN MEDS. PT HAS BEEN TAKING ICE WATER AND EATING CRACKERS IN PACU W/O ISSUES REPORTED. BED IN LOW POSITION, WHEELS LOCKED, BILAT RAILS IN PLACE. CALL LIGHT WITHIN PT REACH. ALL QUESTIONS ANSWERED. PTS AND SON AT BEDSIDE. PT GIVEN PUDDING. ICE WATER REFILLED. 1154-PO PAIN MEDICATION GIVEN PER EMAR. 1210-PTS AT RN STATION REPORTING PT NAUSEATED. INTO PTS ROOM AND EMESIS BAG PROVIDED. PT DENIES VOMITTING, BUT REPORTS SOME "DRY HEAVING". 1215-SPOKE WITH ANÍBAL BENNETT AND RECEIVED VERBAL ORDERS TO GIVE 4MG IV ZOFRAN ONCE FOR NAUSEA. ORDER ENTERED INTO EMAR. 1220-PT WEENED OFF O2 ONTO RA. SATS STABLE AT 92-93% ON RA. BREATHING APPEARS EVEN AND UNLABORED. 1225-IV ZOFRAN GIVEN PER ORDERS FOR RELIED OF NAUSEA.
[2024-11-09] MEDS ORDERED: SCOPOLAMINE 1 MG/3 DAYS PATCH 1 EACH TDSY TD PRN (12:30)
[2024-11-09 12:45] VITALS: BP 123/56
--- NOTE | 2024-11-09 13:10 | NUR ---
1245-INTO PTS ROOM FOR ROUTINE REASSESSMENT. VS TAKEN. IV SITE ASSESSED. SURGICAL SITE VISUALIZED AND NO ACUTE CHANGES NOTED FROM PREVIOUS ASSESSMENT. PT REPORTS PAIN 2-3/10 AND REPORTS NAUSEA HAS RESOLVED. REMAINS AT PTS BEDSIDE. CALL LIGHT WITHIN PT REACH, BED IN LOW POSITION, WHEELS LOCKED, BILAT RAILS IN PLACE. ALL QUESTIONS ANSWERED. LUNCH ORDERED FOR PT. 1300-PT REPORTS PAIN DOWN TO 2/10 IN L KNEE AND CONT TO DENY NAUSEA. IV SL'D. PT REPORTS URGE TO VOID. 1305-PT ASSISTED IN STANDING WITH 4WW AND TRANSFERRING FROM BED TO [facility]. PT ABLE TO VOID APPROX 250 ML OF PALE, CLR, YELLOW URINE. PT THEN ASSISTED BACK TO BED. 1310-PTS LUNCH DELIVERED AND PT EATING WITH AT BEDSIDE.
--- NOTE | 2024-11-09 13:17 | OR ---
[facility] [address] [place], [place] [address] Signed DATE OF OPERATION: 11/09/2024 SURGEON: Erna Nguyen MD PREOPERATIVE DIAGNOSIS: Degenerative joint disease, left knee. POSTOPERATIVE DIAGNOSIS: Degenerative joint disease, left knee. PROCEDURE PERFORMED: Left total knee arthroplasty with Jamie. BRUSH CUTTER: Linnette Saleh PA-C. Linnette was present and critical for all portions of procedure. ANESTHESIA: Spinal. BLOOD LOSS: 200 mL. IMPLANTS: Dipak Triathlon size 4 femur, 3 tibia, 10 mm polyethylene and 32 mm patella. BRIEF HISTORY: Bridgette is a 73-year-old female with significant arthritis in her left knee. Nonoperative treatment was unsuccessful and she wished to proceed with knee replacement. Risks, benefits, and alternatives were discussed at length and she understood and wished to proceed. DESCRIPTION OF PROCEDURE: Once consent was obtained, she was taken to the operating room. After adequate anesthesia, she was placed on operating table. All downside pressure points were well padded and hip bump was placed. The leg was prepped and draped in a standard sterile fashion. Standard anterior approach through a straight incision was taken through the skin and subcutaneous tissue. Skin flaps were developed medially and laterally. A low mid vastus arthrotomy was performed. The infrapatellar fat pad was excised. The MCL was elevated as a sleeve around the mid medial corner. Anterior horns of the menisci Electronically Signed By: ERNA NGUYEN MD 11/09/24 1317 PATIENT NAME: BRIDGETTE MARRERO OPERATIVE REPORT DATE OF : 46 REPORT #: [id number] PHYSICIAN: ERNA NGUYEN MD PCP: ETELVINA GOSS MD REPORT IS CONFIDENTIAL AND NOT TO BE RELEASED WITHOUT AUTHORIZATION [facility] [address] [place], [place] [address] Signed were transected as was the ACL. PCL was found to be intact. The computer arrays for the navigation system were then placed in the distal femur and proximal tibia. The leg was registered with the computer and followed by the fine anatomic points of the knee. The varus valgus poses were undertaken and slight adjustments were made to the prosthesis to balance the knee. Once this was completed, the robot was brought in. The four straight cuts and two angle cuts were made with care taken to protect the patellar tendon and MCL. The bony remnants were removed as were any remaining osteophytes. The posterior osteophytes removed off the femur. No release was performed. The trials were then positioned. Knee was taken from 0-130 degrees with good stability throughout. The patella tracked well. The patella was cut, sized, and drilled for a 32 mm patella. The distal femoral drill holes were made and the proximal tibia was finished using the keel punch followed by the drill holes. The prosthesis was obtained. The tibia was impacted into position, followed by the polyethylene. The femur was impacted until it was seated flush and the knee was extended and loaded. Patella was clamped into position again until it was seated flush. The patellar tracking was noted to be good again and the wound was copiously irrigated with one bottle of Surgiphor followed by normal saline. Periarticular soft tissues were injected with 100 mL ropivacaine and Toradol mixture. The On-Q pain pump was percutaneously placed into the adductor canal from the suprapatellar pouch. The arthrotomy was then closed using a combination of #2 FiberWire and #2 Stratafix. The subcutaneous tissue was closed with 0 Stratafix and skin with 3-0 Stratafix. The wound was sealed with LiquiBand and dressed with an Acticoat-7 dressing, ABDs and Juanjose wrap. She tolerated the procedure well. All sponge, needle, and instrument counts were correct. Erna Nguyen MD BA/MODL /[id number] Copies: ~ Electronically Signed By: ERNA NGUYEN MD 11/09/24 1317 PATIENT NAME: BRIDGETTE MARRERO OPERATIVE REPORT DATE OF : 46 REPORT #: [id number] PHYSICIAN: ERNA NGUYEN MD PCP: ETELVINA GOSS MD REPORT IS CONFIDENTIAL AND NOT TO BE RELEASED WITHOUT AUTHORIZATION
[2024-11-09 13:45] VITALS: BP 118/52
[2024-11-09 14:45] VITALS: BP 113/53
--- NOTE | 2024-11-09 14:49 | NUR ---
1345-INTO PTS ROOM FOR ROTUINE REASSESSMENT. VS TAKEN. IV SITE ASSESSED. SURGICAL SITE VISUALIZED AND NO ACUTE CHANGES NOTED FROM PREVIOUS ASSESSMENT. PT REPORTS PAIN IN L KNEE TOLERABLE AT 2/10. PT DENIES ANY FURTHER NAUSEA WHEN ASKED. ICE WATER REFILLED AND PT GIVEN APPLEJUICE AT HER REQUEST. DIAMOND REMAINS IN PTS ROOM AT BEDSIDE. ALL QUESTIONS ANSWERED. CALL LIGHT WITHIN PT REACH. BED IN LOW POSITION, WHEELS LOCKED, BILAT RAILS IN PLACE. CRYO CUFF IN PLACE TO L KNEE. 1400-PHYSICAL THERAPY INTO SEE PT. 1415-PT OFF UNIT WITH PHYSICAL THERAPY. 1440-PT RETURNED TO DS. PHYSICAL THERAPIST REPORTS PT PASSED. PT REPORTS [facility] IS UNABLE TO FILL RX FOR CEFUROXIME AND WOULD LIKE SENT TO [facility] IF POSSIBLE. 1442-DR. SIMMONS CALLED AND NOTIFIED OF PT PASSING PT AND OF PHAMACY BEING OUT OF CEFUROXIME. DR. SIMMONS SENDING RX INTO [facility] AND WITH VERBAL ORDER TO GIVE ANCEF AND DC PT HOME. FAMILY NOTIFIED REGARDING RX AND ORDERS ENTERED. 1449-PO APAP AND GABAPENTIN GIVEN PER EMAR. IV ANCEF GIVEN. IV FLUSHED WITH 10 ML NS. IV REMOVED. TIP APPEARS INTACT. PRESSURE DRSG APPLIED WITH COBAN AND GAUZE. PT DRESSING FOR DC WITH HUSBANDS ASSISTANCE. PT REFUSED NURSE ASSISTANCE WITH DRESSING.
[2024-11-09] MEDS ORDERED: GABAPENTIN 300 MG CAP PO SCH (15:00)
[2024-11-09] MEDS ORDERED: ACETAMINOPHEN 500 MG TAB PO SCH (15:00)
--- NOTE | 2024-11-09 15:30 | NUR ---
1500-INTO PTS ROOM. PT REPORTS GETTING NAUSEATED WHILE DRESSING AND VOMITTING SMALL AMT INTO EMESIS BAG. MEASURES APPROXIMATELY 50 ML. PT ASSISTED BACK INTO BED. PT DENIES FURTHER NAUSEA AND RESTING QUIETLY WITH AT BEDSIDE. 7 UP PROVIDED. 1520-INTO PTS ROOM FOR DC EDUCATION. VERBAL AND WRITTEN DISCHARGE INSTRUCTION REVIEWED WITH PT AND . PT GIVEN IS AND EDUCATED ON USE. PT REPORTS SHE HAS USED IN THE PAST AND VERBALIZES UNDERSTANDING. PT GIVEN DR. SIMMONS AFTER HOURS PHONE NUMBER, DRSG CHANGE APPT AND POST OP APPT INFO. ALL QUESTIONS ANSWERED. PT AND SPOUSE VERBALIZED UNDERSTANDING. 1530-PT CONT TO REPORT NO FURTHER NAUSEA. VS TAKEN. PTS LEFT TO PULL CAR AROUND TO FRONT.
[2024-11-09 15:36] VITALS: BP 113/46
--- NOTE | 2024-11-09 15:40 | NUR ---
PT DISCHARGED FROM DS TO PASSENGER SIDE OF HUSBANDS VEHICLE. ALL PERSONAL BELONGINGS TAKEN WITH PT.
[2024-11-09] MEDS ORDERED: SENNOSIDES 1 TAB PO SCH (21:00)
[2024-11-10] MEDS ORDERED: CELECOXIB 200 MG CAP PO SCH (08:00)
[2024-11-10] MEDS ORDERED: cefuroxime axetiL 250 MG TAB PO SCH (09:00)
== END 2024-11-09 15:40 | disposition home or self-care (01) ==
LOC: DS 06:55
PROVIDERS: ATTEND Specialist
PROC: 0SRD0JZ Replacement of Left Knee Joint with Synthetic Substitute, Open Approach (ICD-10-PCS; principal; 2024-11-09 09:15)
DX: M17.12 Unilateral primary osteoarthritis, left knee (principal); E78.00 Pure hypercholesterolemia, unspecified; I12.9 Hypertensive chronic kidney disease with stage 1 through stage 4 chronic kidney disease, or unspecified chronic kidney disease; N18.30 Chronic kidney disease, stage 3 unspecified; E05.90 Thyrotoxicosis, unspecified without thyrotoxic crisis or storm; Z88.8 Allergy status to other drugs, medicaments and biological substances; Z79.899 Other long term (current) drug therapy
CPT/HCPCS: 01402; 64447; 73560; 97161; A9270; C1776; J0131; J0173; J0690; J1171; J2003; J2405; J2704; J2795; J3010; J3475; J3490; J7121; J7999